=== PATIENT | male | born 1955 | race Caucasian/White ===

== ENCOUNTER 2020-05-09 11:02 | Outpatient (REF) | payer OTHER, SELFPAY ==
[2020-05-09 11:07] LABS: MANUAL DIFF FLAG NO
[2020-05-09 11:25] LABS: Basophils Percent Auto 0.5 % (0-2); Eosinophils Absolute Auto 0.4 X10*3/uL (0.0-0.4); Eosinophils Percent Auto 7.2 % (0-4); Hemoglobin 15.3 g/dl (14.0-18.0); Imm Gran Abs Auto 0.01 X10*3/uL (0.00-0.03); Imm Gran Pct Auto 0.2 % (0.0-0.4); Lymphocytes Absolute Auto 1.7 X10*3/uL (1.2-4.9); Mean Corpuscular HGB Conc 33.3 g/dl (31.0-36.0); Mean Corpuscular Hemoglobin 30.4 pg (27.0-33.0); Mean Corpuscular Volume 91.3 fL (80-98); Mean Platelet Volume 10.4 fL (9.4-12.4); Monocytes Absolute Auto 0.7 X10*3/uL (0.1-1.2); Monocytes Percent Auto 10.6 % (2-11); Neutrophils Absolute Auto 3.4 X10*3/uL (2.0-8.3); Neutrophils Percent Auto 54.5 % (45-73); Platelet Count 258 X10*3/uL (160-400); Red Blood Count 5.04 X10*6/uL (4.60-5.80); Red Cell Distribution Width 11.9 % (11.0-16.0); White Blood Count 6.1 X10*3/uL (4.8-10.8)
[2020-05-09 11:45] LABS: Estimated Average Glucose 105 mg/dL; Hemoglobin A1c % 5.3 %
[2020-05-09 12:15] LABS: Alanine Aminotransferase 34 U/L (0-40); Albumin Level 4.5 g/dL (3.5-5.0); Alkaline Phosphatase 55 U/L (39-117); Anion Gap 14 (12-20); Aspartate Amino Transferase 22 U/L (5-37); Bilirubin Total 0.4 mg/dL (0.0-1.0); Blood Urea Nitrogen 35 mg/dL (9-16); Calcium 9.1 mg/dL (8.4-10.2); Carbon Dioxide 23 mmol/L (22-29); Chloride 110 mmol/L (96-108); Cholesterol 186 mg/dL; Estimated Glomerular Filt Rate > 60; Glucose Random 96 mg/dL (60-115); HDL Cholesterol 46 mg/dL; LDL Cholesterol Calculated 83 mg/dl; Potassium 4.3 mmol/L (3.3-5.1); Sodium 143 mmol/L (135-145); Total Protein 6.7 g/dL (6.5-8.0); Triglycerides 285 mg/dL
[2020-05-09 12:33] LABS: Glucose Urine UA NEG (NEG); Leukocyte Esterase Urine NEG (NEG); Nitrite Urine NEG (NEG); PH 6.5 (5.0-8.0); Specific Gravity - Urine 1.025 (1.005-1.025); Urine Blood NEG (NEG); Urine Ketones NEG (NEG); Urine Protein NEG (NEG-TRACE)
[2020-05-09 12:35] LABS: Appearance Urine CLOUDY; Color Urine YELLOW
[2020-05-09 12:39] LABS: Prostate Specific Antigen 0.86 ng/mL (<0.05-4.0)
[2020-05-09 13:12] LABS: Reflex LDLD? No
[2020-05-09 14:19] LABS: Microalbum/Creatinine Ratio Ur 3.9 ug/mg cr
== END 2020-05-09 11:03 | disposition home or self-care (01) ==
LOC: HO.LNP 11:02
PROVIDERS: Visit Provider Internal Medicine
DX: Z00.00 Encounter for general adult medical examination without abnormal findings (principal); Z12.5 Encounter for screening for malignant neoplasm of prostate; R73.03 Prediabetes; R94.4 Abnormal results of kidney function studies
CPT/HCPCS: 80053; 80061; 81003; 82043; 83036; 84153; 85025

== ENCOUNTER 2020-05-19 15:27 | Outpatient (REF) | payer OTHER, SELFPAY ==
[2020-05-19 16:07] LABS: Blood Urea Nitrogen 27 mg/dL (9-16)
== END 2020-05-19 15:28 | disposition home or self-care (01) ==
LOC: HO.LNP 15:27
PROVIDERS: Visit Provider Internal Medicine
DX: R79.9 Abnormal finding of blood chemistry, unspecified (principal)
CPT/HCPCS: 84520

== ENCOUNTER 2020-07-22 10:02 | Outpatient (REF) | payer OTHER, SELFPAY ==
[2020-07-22 11:00] LABS: Blood Urea Nitrogen 29 mg/dL (9-16)
== END 2020-07-22 10:03 | disposition home or self-care (01) ==
LOC: HO.LNP 10:02
PROVIDERS: Visit Provider Internal Medicine
DX: R79.9 Abnormal finding of blood chemistry, unspecified (principal)
CPT/HCPCS: 84520

== ENCOUNTER 2020-09-16 06:29 | Day surgery (SDC) | payer OTHER, SELFPAY ==
[2020-09-12 10:17] VITALS: BMI 25.4
--- NOTE | 2020-09-15 11:52 | P.CONAN_ITS ---
Documented by User: Anamika Jack 09/15/20 11:53 HPI - Anesthesia Eval Consult details Narrative: 65yo M for Colonoscopy [facility] Past Medical History Medical History Seasonal allergies Surgical History Surgical History History of left inguinal hernia repair History of nasal surgery History of right inguinal hernia repair History of vasectomy Hx of colonoscopy Social History Social History Advance Directives: No Advance Directives Information Provided: No Advance Directives on File: No Meds Allergies Allergy/AdvReac Type Severity Reaction Status Date / Time No Known Allergies Allergy Verified 09/16/20 06:38 Home Medications Medication Instructions Recorded Confirmed Last Taken Type multivitamin 1 tab PO DAILY 09/12/20 09/12/20 Unknown History Exam Exam Date and Time: September 15, 2020 1152 Height,Weight and Vital Signs: Height 5 ft 10 in Weight 80.286 kg Assessment and Plan Assessment Anesthesia Assessment: Chart Reviewed Documented by User: Teagan Cavazos 09/16/20 07:30 [facility] Past Medical History Medical History Seasonal allergies Surgical History Surgical History History of left inguinal hernia repair History of nasal surgery History of right inguinal hernia repair History of vasectomy Hx of colonoscopy Social History Social History Advance Directives: No Advance Directives Information Provided: No Advance Directives on File: No Meds Allergies Allergy/AdvReac Type Severity Reaction Status Date / Time No Known Allergies Allergy Verified 09/16/20 06:38 Home Medications Medication Instructions Recorded Confirmed Last Taken Type multivitamin 1 tab PO DAILY 09/12/20 09/12/20 Unknown History Exam Airway Mallampati Class: II TM Dist: >3cm Neck ROM: Full Loose/Missing/Broken Teeth: No Heart: RRR Lungs: CTA Assessment and Plan Assessment Anesthesia Assessment: Anesthesia Plan Discussed and Chart Reviewed Final Anesthetic Review NPO: Yes ASA Class: II Final Preanesthetic Review: Meds/Allgs Chart Reviewed, Consent Obtained/Reviewed and Anes Risks/Benef Reviewed Patient Risk: Low Procedure Risk: Low Anesthetic Plan Anesthetic Plan: MAC: Disposition: Standard PACU
[2020-09-16 06:45] VITALS: BP 129/74; PULSE 83; RESP 18; TEMP 36.6; O2SAT 97
[2020-09-16] MEDS: Lactated Ringers 1,000 ML 100 ML IVCONT (06:57)
--- NOTE | 2020-09-16 08:23 | PM.OP ---
Brief Operative Note Date of Service: 09/16/20 Pre-op diagnosis: Screening Post-op diagnosis: other (Diverticulosis) Procedure: Colonoscopy to the cecum and TI Surgeon: Henrique Henson Anesthesia: MAC Was an Sheep Rancher used for this Procedure?: No Estimated blood loss (mL): 0 Pathology: none sent Condition: stable Disposition: PACU
[2020-09-16 08:24] VITALS: BP 105/73; PULSE 78; RESP 12; TEMP 36.4; O2SAT 99
[2020-09-16 08:37] VITALS: BP 129/83; PULSE 64; RESP 16; TEMP 36.8; O2SAT 98
--- NOTE | 2020-09-16 09:04 | OP_ITS ---
SURGEON: Henrique Henson MD INDICATIONS: The patient presents for evaluation of family history of colon cancer and colorectal cancer screening. Full consent has been obtained from him for this, including risks of bleeding and perforation. PREOPERATIVE DIAGNOSIS: POSTOPERATIVE DIAGNOSIS: PROCEDURE PERFORMED: Colonoscopy to cecum and terminal ileum. ESTIMATED BLOOD LOSS: COMPLICATIONS: ANESTHESIA: Monitored anesthesia care. ASSISTANTS: SPECIMENS: PREOPERATIVE DIAGNOSES: Colorectal cancer screening and family history of colon cancer. POSTOPERATIVE DIAGNOSES: Colorectal cancer screening, family history of colon cancer, mild sigmoid diverticulosis, and small internal hemorrhoids. DESCRIPTION OF PROCEDURE: The patient was placed in the left lateral decubitus position. The digital rectal exam revealed no abnormalities. The Olympus video pediatric colonoscope was entered into the rectum and advanced easily to the cecum. Once in the cecum, I did identify normal-appearing cecal pouch with appendiceal orifice and a normal-appearing ileocecal valve. The terminal ileum was cannulated and appeared normal. The scope withdrawn back in the colon. The entire cecum and ileocecal valve appeared normal. Scope was slowly withdrawn assessing all mucosal surfaces carefully. Preparation was excellent. I did not visualize any sign of polyps, colitis, nor angiodysplasia. There was a mild amount of sigmoid diverticulosis. In the rectum, scope was retroflexed visualizing small internal hemorrhoids, but no other pathology. The rectal mucosa appeared normal. The scope was straightened out and withdrawn from the patient. He tolerated the procedure well and was returned to recovery area in stable condition. IMPRESSION: 1. Mild sigmoid diverticulosis. 2. Small internal hemorrhoids. PLAN: Given his significant family history, I would recommend a repeat colonoscopy in 5 years for further screening. He will otherwise see me on a p.r.n. basis. MD MICHOACANO Ibanez/ALPESH / [phone]
== END 2020-09-16 09:02 | disposition home or self-care (01) ==
PROVIDERS: PCP Internal Medicine; Visit Provider Internal Medicine
PROC: 0DJD8ZZ Inspection of Lower Intestinal Tract, Via Natural or Artificial Opening Endoscopic (ICD-10-PCS; CPT 45378; principal; 2020-09-16 07:30)
DX: Z12.11 Encounter for screening for malignant neoplasm of colon (principal); Z80.0 Family history of malignant neoplasm of digestive organs; K57.30 Diverticulosis of large intestine without perforation or abscess without bleeding; K64.8 Other hemorrhoids
CPT/HCPCS: 45378

== ENCOUNTER 2020-10-26 11:16 | Outpatient (REF) | payer OTHER, SELFPAY ==
[2020-10-26 12:07] LABS: Anion Gap 12 (12-20); Blood Urea Nitrogen 26 mg/dL (9-16); Calcium 9.5 mg/dL (8.4-10.2); Carbon Dioxide 25 mmol/L (22-29); Chloride 106 mmol/L (96-108); Estimated Glomerular Filt Rate > 60; Sodium 139 mmol/L (135-145)
[2020-10-26 12:22] LABS: Appearance Urine HAZY; Color Urine YELLOW; Glucose Urine UA NEG (NEG); Leukocyte Esterase Urine NEG (NEG); Nitrite Urine NEG (NEG); Specific Gravity - Urine >= 1.030 (1.005-1.025); Urine Blood NEG (NEG); Urine Ketones NEG (NEG); Urine Protein NEG (NEG-TRACE)
[2020-10-26 12:47] LABS: Creatinine Urine 206.55 mg/dL; Microalbum/Creatinine Ratio Ur 3.3 ug/mg cr; Protein/Creatinine Ratio, Ur 0.05 (<0.2); Total Protein Urine Random 11 mg/dL (<12)
[2020-10-26 19:00] LABS: Creatinine, 24Hr Urine 1.4 G/Day (1.0-2.0); Total Volume 24 Hour Urine 1750 mL
[2020-11-07 15:52] LABS: BUN 28 mg/dL (7-25); BUN Clearance 26 mL/min (41-68); Urea Nitrogen, Urine 12 g/24 h (6-17)
== END 2020-10-26 11:17 | disposition home or self-care (01) ==
LOC: HO.LAB 11:16
PROVIDERS: Visit Provider Internal Medicine Nephrology
DX: R79.9 Abnormal finding of blood chemistry, unspecified (principal)
CPT/HCPCS: 36415; 80051; 81003; 82043; 82310; 82565; 82570; 84156; 84520; 84545

== ENCOUNTER 2021-04-14 09:50 | Outpatient (REF) | payer OTHER, SELFPAY ==
--- NOTE | ~2021-04-14 | FL_ITS ---
EXAMINATION: FL BARIUM SWALLOW CLINICAL INFORMATION: Dysphagia COMPARISON: None TECHNIQUE: Barium swallow examination is performed using fluoroscopic evaluation in addition to multiple fluoroscopic spot views. The patient is imaged both upright and prone and using both thick and thin sulfate along with effervescent granules. Barium tablet was also administered Fluoroscopy time: 1 minutes DAP: 3 Gycm2 Images: 62 FINDINGS: The swallowing mechanism is normal. No aspiration or penetration is seen. There is transient posterior impression on the esophagus from a prominent cricopharyngeus muscle. There is significant gastroesophageal reflux. There is a small sliding-type hiatal hernia and Schatzki ring. No evidence of mass, stricture or esophagitis is seen. Barium tablet passed freely into the stomach. FL/FL barium swallow IMPRESSION: Significant gastroesophageal reflux. Small sliding-type hiatal hernia with Schatzki ring.
== END 2021-04-14 09:51 | disposition home or self-care (01) ==
LOC: HO.XRAY 09:50
PROVIDERS: PCP Internal Medicine; Visit Provider Otolaryngology
DX: R13.10 Dysphagia, unspecified (principal); K21.9 Gastro-esophageal reflux disease without esophagitis
CPT/HCPCS: 74220

== ENCOUNTER 2021-05-16 10:36 | Outpatient (REF) | payer OTHER, SELFPAY ==
[2021-05-16 10:39] LABS: MANUAL DIFF FLAG NO
[2021-05-16 10:49] LABS: Basophils Percent Auto 0.6 % (0-2); Eosinophils Absolute Auto 0.4 X10*3/uL (0.0-0.4); Eosinophils Percent Auto 9.1 % (0-4); Hematocrit 45.3 % (42.0-52.0); Hemoglobin 15.3 g/dl (14.0-18.0); Imm Gran Abs Auto 0.01 X10*3/uL (0.00-0.03); Imm Gran Pct Auto 0.2 % (0.0-0.4); Lymphocytes Absolute Auto 1.4 X10*3/uL (1.2-4.9); Lymphocytes Percent Auto 29.7 % (20-40); Mean Corpuscular HGB Conc 33.8 g/dl (31.0-36.0); Mean Corpuscular Volume 88.8 fL (80.0-98.0); Mean Platelet Volume 10.6 fL (9.4-12.4); Monocytes Absolute Auto 0.5 X10*3/uL (0.1-1.2); Monocytes Percent Auto 11.2 % (2-11); Neutrophils Absolute Auto 2.3 x10*3/uL (2.0-8.3); Neutrophils Percent Auto 49.2 % (45-73); Platelet Count 263 X10*3/uL (160-400); Red Cell Distribution Width 11.8 % (11.0-16.0); White Blood Count 4.7 X10*3/uL (4.8-10.8)
[2021-05-16 10:51] LABS: Appearance Urine CLEAR; Color Urine YELLOW; Glucose Urine UA NEG (NEG); Leukocyte Esterase Urine NEG (NEG); Nitrite Urine NEG (NEG); PH 6.5 (5.0-8.0); Specific Gravity - Urine 1.015 (1.005-1.025); Urine Blood NEG (NEG); Urine Ketones NEG (NEG); Urine Protein NEG (NEG-TRACE)
[2021-05-16 11:00] LABS: Estimated Average Glucose 108 mg/dL; Hemoglobin A1c % 5.4 %
[2021-05-16 11:07] LABS: Alanine Aminotransferase 24 U/L (0-40); Albumin Level 4.4 g/dL (3.5-5.0); Alkaline Phosphatase 49 U/L (39-117); Anion Gap 12 (12-20); Aspartate Amino Transferase 19 U/L (5-37); Bilirubin Total 0.5 mg/dL (0.0-1.0); Blood Urea Nitrogen 22 mg/dL (9-16); Calcium 9.4 mg/dL (8.4-10.2); Carbon Dioxide 24 mmol/L (22-29); Chloride 107 mmol/L (96-108); Cholesterol 182 mg/dL; Estimated Glomerular Filt Rate > 60; Glucose Fasting 100 mg/dL (60-99); HDL Cholesterol 53 mg/dL; LDL Cholesterol Calculated 108 mg/dl; Potassium 4.2 mmol/L (3.3-5.1); Sodium 139 mmol/L (135-145); Total Protein 6.6 g/dL (6.5-8.0); Triglycerides 107 mg/dL
[2021-05-16 11:29] LABS: Creatinine Urine 148.31 mg/dL; Microalbumin Urine < 5.0 mg/L
[2021-05-16 11:30] LABS: PSA,Total (Free>4and<10) 0.47 ng/mL (0.00-4.00)
== END 2021-05-16 10:37 | disposition home or self-care (01) ==
LOC: HO.LNP 10:36
PROVIDERS: Visit Provider Internal Medicine
DX: Z12.5 Encounter for screening for malignant neoplasm of prostate (principal); R73.03 Prediabetes
CPT/HCPCS: 80053; 80061; 81003; 82043; 83036; 84153; 85025

== ENCOUNTER 2022-05-21 11:13 | Outpatient (REF) | payer OTHER, SELFPAY ==
[2022-05-21 11:15] LABS: MANUAL DIFF FLAG NO
[2022-05-21 11:33] LABS: Basophils Percent Auto 0.6 % (0-2); Eosinophils Absolute Auto 0.4 X10*3/uL (0.0-0.4); Eosinophils Percent Auto 7.4 % (0-4); Hematocrit 46.2 % (42.0-52.0); Hemoglobin 15.4 g/dl (14.0-18.0); Imm Gran Abs Auto 0.01 X10*3/uL (0.00-0.03); Imm Gran Pct Auto 0.2 % (0.0-0.4); Lymphocytes Absolute Auto 1.6 X10*3/uL (1.2-4.9); Lymphocytes Percent Auto 31.9 % (20-40); Mean Corpuscular HGB Conc 33.3 g/dl (31.0-36.0); Mean Corpuscular Hemoglobin 29.6 pg (27.0-33.0); Mean Corpuscular Volume 88.8 fL (80.0-98.0); Mean Platelet Volume 10.7 fL (9.4-12.4); Monocytes Absolute Auto 0.6 X10*3/uL (0.1-1.2); Monocytes Percent Auto 11.4 % (2-11); Neutrophils Absolute Auto 2.4 x10*3/uL (2.0-8.3); Neutrophils Percent Auto 48.5 % (45-73); Platelet Count 238 X10*3/uL (160-400); Red Cell Distribution Width 11.6 % (11.0-16.0)
[2022-05-21 11:54] LABS: Appearance Urine Clear; Color Urine Yellow; Glucose Urine UA Negative (Negative); Leukocyte Esterase Urine Negative (Negative); Nitrite Urine Negative (Negative); PH 6.5 (5.0-9.0); Specific Gravity - Urine 1.015 (1.005-1.025); Urine Blood Negative (Negative); Urine Ketones Negative (Negative); Urine Protein Negative (Neg-Trace)
[2022-05-21 11:58] LABS: Bacteria Urine None Seen (None Seen); Hyaline Casts Urine 0-2 /LPF (0-2); RBC Urine 0-2 /HPF (0-2); Squamous Epithelial Cell Urine 0-2 /HPF (0-2); WBC Urine 0-5 /HPF (0-5)
[2022-05-21 12:08] LABS: Alanine Aminotransferase 29 U/L (0-40); Albumin Level 4.4 g/dL (3.5-5.0); Alkaline Phosphatase 47 U/L (39-117); Anion Gap 13 (12-20); Aspartate Amino Transferase 22 U/L (5-37); Bilirubin Total 0.4 mg/dL (0.0-1.0); Blood Urea Nitrogen 31 mg/dL (9-16); Calcium 9.3 mg/dL (8.4-10.2); Carbon Dioxide 26 mmol/L (22-29); Chloride 107 mmol/L (96-108); Cholesterol 197 mg/dL; Estimated Glomerular Filt Rate > 60; Glucose Fasting 92 mg/dL (60-99); HDL Cholesterol 49 mg/dL; LDL Cholesterol Calculated 116 mg/dl; Potassium 4.4 mmol/L (3.3-5.1); Sodium 142 mmol/L (135-145); Total Protein 6.3 g/dL (6.5-8.0); Triglycerides 163 mg/dL
[2022-05-21 12:12] LABS: PSA,Total (Free>4and<10) 0.42 ng/mL (0.00-4.00)
[2022-05-21 12:14] LABS: Estimated Average Glucose 114 mg/dL; Hemoglobin A1c % 5.6 %
[2022-05-21 15:43] LABS: Creatinine Urine 84.38 mg/dL; Microalbumin Urine < 5.0 mg/L
== END 2022-05-21 11:14 | disposition home or self-care (01) ==
LOC: HO.LNP 11:13
PROVIDERS: Visit Provider Internal Medicine
DX: Z00.00 Encounter for general adult medical examination without abnormal findings (principal); Z12.5 Encounter for screening for malignant neoplasm of prostate; R73.03 Prediabetes
CPT/HCPCS: 80053; 80061; 81001; 82043; 83036; 84153; 85025

== ENCOUNTER 2022-11-26 10:29 | Outpatient (REF) | payer OTHER, SELFPAY ==
[2022-11-26 11:28] LABS: Blood Urea Nitrogen 24 mg/dL (9-16)
== END 2022-11-26 10:30 | disposition home or self-care (01) ==
LOC: HO.LNP 10:29
PROVIDERS: PCP Internal Medicine; Visit Provider Internal Medicine
DX: R79.9 Abnormal finding of blood chemistry, unspecified (principal)
CPT/HCPCS: 84520

== ENCOUNTER 2023-05-20 10:59 | Outpatient (REF) | payer OTHER, SELFPAY ==
[2023-05-20 11:03] LABS: MANUAL DIFF FLAG NO
[2023-05-20 11:43] LABS: Appearance Urine Clear; Basophils Percent Auto 0.9 % (0-2); Color Urine Yellow; Eosinophils Absolute Auto 0.5 X10*3/uL (0.0-0.4); Eosinophils Percent Auto 11.5 % (0-4); Glucose Urine UA Negative (Negative); Hematocrit 45.2 % (42.0-52.0); Hemoglobin 15.1 g/dl (14.0-18.0); Imm Gran Abs Auto 0.01 X10*3/uL (0.00-0.03); Imm Gran Pct Auto 0.2 % (0.0-0.4); Leukocyte Esterase Urine Negative (Negative); Lymphocytes Absolute Auto 1.4 X10*3/uL (1.2-4.9); Mean Corpuscular HGB Conc 33.4 g/dl (31.0-36.0); Mean Corpuscular Hemoglobin 29.4 pg (27.0-33.0); Mean Corpuscular Volume 87.9 fL (80.0-98.0); Mean Platelet Volume 10.6 fL (9.4-12.4); Monocytes Absolute Auto 0.5 X10*3/uL (0.1-1.2); Monocytes Percent Auto 11.5 % (2-11); Neutrophils Absolute Auto 2.1 x10*3/uL (2.0-8.3); Neutrophils Percent Auto 45.9 % (45-73); Nitrite Urine Negative (Negative); PH 5.5 (5.0-9.0); Platelet Count 224 X10*3/uL (160-400); Red Blood Count 5.14 X10*6/uL (4.60-5.80); Red Cell Distribution Width 11.9 % (11.0-16.0); Specific Gravity - Urine 1.015 (1.005-1.025); Urine Blood Negative (Negative); Urine Ketones Negative (Negative); Urine Protein Negative (Neg-Trace); White Blood Count 4.6 X10*3/uL (4.8-10.8)
[2023-05-20 11:48] LABS: Bacteria Urine None Seen (None Seen); Estimated Average Glucose 108 mg/dL; Hemoglobin A1c % 5.4 % (<6.0); Hyaline Casts Urine 0-2 /LPF (0-2); RBC Urine 0-2 /HPF (0-2); Squamous Epithelial Cell Urine 0-2 /HPF (0-2); WBC Urine 0-5 /HPF (0-5)
[2023-05-20 11:59] LABS: Alanine Aminotransferase 33 U/L (0-40); Albumin Level 4.2 g/dL (3.5-5.0); Alkaline Phosphatase 43 U/L (39-117); Anion Gap 11 (12-20); Aspartate Amino Transferase 27 U/L (5-37); Bilirubin Total 0.5 mg/dL (0.0-1.0); Blood Urea Nitrogen 27 mg/dL (9-16); Calcium 9.2 mg/dL (8.4-10.2); Carbon Dioxide 26 mmol/L (22-29); Chloride 108 mmol/L (96-108); Cholesterol 204 mg/dL (<200); Estimated Glomerular Filt Rate > 60; Glucose Fasting 90 mg/dL (60-99); HDL Cholesterol 64 mg/dL (>40); LDL Cholesterol Calculated 113 mg/dL (<100); Sodium 141 mmol/L (135-145); Total Protein 6.7 g/dL (6.5-8.0); Triglycerides 139 mg/dL (<150)
[2023-05-20 12:11] LABS: PSA,Total (Free>4and<10) 0.41 ng/mL (0.00-4.00)
[2023-05-20 12:28] LABS: Creatinine Urine 68.37 mg/dL; Microalbumin Urine < 5.0 mg/L
== END 2023-05-20 11:00 | disposition home or self-care (01) ==
LOC: HO.LNP 10:59
PROVIDERS: Visit Provider Internal Medicine
DX: Z00.00 Encounter for general adult medical examination without abnormal findings (principal); Z12.5 Encounter for screening for malignant neoplasm of prostate; Z13.6 Encounter for screening for cardiovascular disorders; R73.03 Prediabetes
CPT/HCPCS: 80053; 80061; 81001; 82043; 82570; 83036; 84153; 85025

== ENCOUNTER 2023-05-27 08:56 | Outpatient (REF) | payer OTHER, SELFPAY ==
--- NOTE | ~2023-05-27 | XR_ITS ---
EXAMINATION: XR CHEST CLINICAL INFORMATION: Chronic, cough. COMPARISON: None available. TECHNIQUE: 2 views of the chest were obtained. FINDINGS: There is no gross pneumothorax. The lungs are well inflated. Degenerative changes in the thoracic spine. No pleural effusion. Heart size is normal. No focal consolidation to suggest pneumonia. XR/XR chest 2V IMPRESSION: No evidence of pneumonia.
== END 2023-05-27 08:57 | disposition home or self-care (01) ==
LOC: HO.XRAY 08:56
PROVIDERS: PCP Internal Medicine; Visit Provider Internal Medicine
DX: R05.3 Chronic cough (principal)
CPT/HCPCS: 71046

== ENCOUNTER 2024-05-22 10:25 | Outpatient (REF) | payer MEDICARE, SELFPAY ==
[2024-05-22 10:28] LABS: MANUAL DIFF FLAG NO
[2024-05-22 10:53] LABS: Basophils Percent Auto 0.7 % (0-2); Eosinophils Absolute Auto 0.4 X10*3/uL (0.0-0.4); Eosinophils Percent Auto 7.4 % (0-4); Hematocrit 45.6 % (42.0-52.0); Hemoglobin 15.7 g/dl (14.0-18.0); Imm Gran Abs Auto 0.01 X10*3/uL (0.00-0.03); Imm Gran Pct Auto 0.2 % (0.0-0.4); Lymphocytes Absolute Auto 1.8 X10*3/uL (1.2-4.9); Lymphocytes Percent Auto 32.9 % (20-40); Mean Corpuscular HGB Conc 34.4 g/dl (31.0-36.0); Mean Corpuscular Hemoglobin 30.4 pg (27.0-33.0); Mean Corpuscular Volume 88.4 fL (80.0-98.0); Mean Platelet Volume 10.3 fL (9.4-12.4); Monocytes Absolute Auto 0.6 X10*3/uL (0.1-1.2); Monocytes Percent Auto 10.5 % (2-11); Neutrophils Absolute Auto 2.7 x10*3/uL (2.0-8.3); Neutrophils Percent Auto 48.3 % (45-73); Platelet Count 255 X10*3/uL (160-400); Red Blood Count 5.16 X10*6/uL (4.60-5.80); Red Cell Distribution Width 12.3 % (11.0-16.0); White Blood Count 5.5 X10*3/uL (4.8-10.8)
[2024-05-22 11:03] LABS: Appearance Urine Clear; Color Urine Yellow; Glucose Urine UA Negative (Negative); Leukocyte Esterase Urine Negative (Negative); Nitrite Urine Negative (Negative); PH 6.5 (5.0-9.0); Urine Blood Negative (Negative); Urine Ketones Negative (Negative); Urine Protein Negative (Neg-Trace)
[2024-05-22 11:10] LABS: Bacteria Urine None Seen (None Seen); Hyaline Casts Urine 0-2 /LPF (0-2); RBC Urine 0-2 /HPF (0-2); Squamous Epithelial Cell Urine 0-2 /HPF (0-2); WBC Urine 0-5 /HPF (0-5)
[2024-05-22 11:18] LABS: Estimated Average Glucose 103 mg/dL; Hemoglobin A1c % 5.2 % (<6.0); Total Hemoglobin (HGBA1C) 3973.7786 umol/L
[2024-05-22 11:26] LABS: Alanine Aminotransferase 36 U/L (0-40); Albumin Level 4.4 g/dL (3.5-5.0); Alkaline Phosphatase 44 U/L (39-117); Anion Gap 13 (12-20); Aspartate Amino Transferase 31 U/L (5-37); Bilirubin Total 0.6 mg/dL (0.0-1.0); Blood Urea Nitrogen 31 mg/dL (9-16); Calcium 9.3 mg/dL (8.4-10.2); Carbon Dioxide 26 mmol/L (22-29); Chloride 105 mmol/L (96-108); Cholesterol 203 mg/dL (<200); Estimated Glomerular Filt Rate > 60; Glucose Fasting 86 mg/dL (60-99); HDL Cholesterol 72 mg/dL (>40); LDL Cholesterol Calculated 109 mg/dL (<100); Potassium 3.9 mmol/L (3.3-5.1); Sodium 140 mmol/L (135-145); Total Protein 7.1 g/dL (6.5-8.0); Triglycerides 111 mg/dL (<150)
--- OUTSIDE RECORDS SUMMARY | 2024-05-22 11:43 | XMS_ITS ---
Author Organization Jay Rushing MD Address [address] [place] [phone] Care Team Providers Care Gandy Dancer Name Role Phone Jay Rushing Primary Care Provider Results Component Value Reference Range Notes Occult Blood, Stool, Guaiac Reviewed date:05/31/2023 11:05:31 AM Interpretation:Negative Performing Lab: Notes/Report: Negative Occult Blood, Stool, Guaiac Neg REASON FOR VISIT 1 stool card Encounters Encounter Location Date Provider Diagnosis Jay Rushing MD [address] [place] [phone] 05/31/2023 aJy Rushing Colon cancer screening Z12.11 Assessments Encounter Date Diagnosis (ICD Code) Assessment Notes Treatment Notes Treatment Clinical Notes Section Notes 05/31/2023 Colon cancer screening (ICD-10 - Z12.11) guaiac negative Plan Of Treatment Treatment Notes Assessment Notes Colon cancer screening guaiac negative Next Appt Details Provider Name:Jay Bourne ier, 05/29/2024 08:30:00 AM, [address], Suite [facility], [place], [place], [phone], Progress Notes * David FORBES FDOB:1955 (68 yo M)Acc No.[id number]:05/31/2023 Patient:?David Forbes :1955???Age:68 Y???Sex:Male Address:[address] [place] [address] Subjective: * Chief Complaints: * ???1 stool card * Medical History:? * Surgical History:? * Hospitalization/Major Diagno stic Procedure:? * Medications:? Objective: Assessment: * Assessment: 1.?Colon cancer screening - Z12.11 (Primary)? Plan: * Treatment: ? Value Reference Range ?Occult Blood, Stool, Guaiac Neg Notes: guaiac negative.?? * Procedure Codes:?96934 TEST FOR BLOOD, FECES * true * Date:? Generated for Cierra marshall/Mika/eTransmitting on:?05/22/2024 11:43 AM EST
--- OUTSIDE RECORDS SUMMARY | 2024-05-22 11:43 | XMS_ITS | Patient Health Record ---
Author Organization [facility] Address [address] [place] [address] Care Team Providers Care Freezer Person Name Role Phone Jay Rushing MD Primary Care Provider Henrique Hidalgo Unavailable [phone] Allergies Allergen (clinical drug ingredient) Drug/Non Drug Allergy documented on EMR Reaction Allergy Type Onset Date Status Vaccine product containing Influenza virus antigen (medicinal product) flu injections (uncoded) Unknown Allergy Active Reason For Referral No Information Medications Medication SIG (Take, Route, Frequency, Duration) Notes Start Date End Date Status Multivitamin Active Problems Problem Type SNOMED Code ICD Code Onset Dates Problem Status W/U Status Risk Notes Problem 768953058 Encounter for screening for malignant neoplasm of colon (Z12.11) Active confirmed Problem Screening for malignant neoplasm of rectum (892265977) Encounter for screening for malignant neoplasm of rectum (Z12.12) Active confirmed Problem 99742476 Preprocedural examination (Z01.818) Active confirmed Problem 146383192 Family history o f colon cancer (Z80.0) Active confirmed Problem Diverticulosis of sigmoid colon (041379120) Diverticulosis of sigmoid colon (K57.30) Active confirmed Problem 133698556 Family history o f colon cancer in father (Z80.0) Active confirmed Plan Of Treatment Future Test Test Name Order Date COLONOSCOPY 07/26/2015 COLONOSCOPY 08/23/2020 Insurance Providers Payer Name Payer Address Payer Phone Subscriber Number Group Number Insured Name Patient Relationship to Insured Coverage Start Date Coverage End Date [employer] (No Referra l) [address] [address] [place] [address] [id number] OCHOA FORBES Self - patient is the insured Medical (General) History Medical History History ICD Code Colonoscopy in 2004 and on ---diverticulosis and inrternal hemorrhoids Denies MS,DM,CVA,Lung disease,renal dise ase Seasonal allergies Negative colonoscopy in 10/2015 Surgical History Surgery Date(Month/Year) Right inguinal hernia surgery Vasectomy Left hernia repair Nasal polyp/deviated septum
--- OUTSIDE RECORDS SUMMARY | 2024-05-22 11:43 | XMS_ITS | Patient Health Record ---
Author Organization Jay Rushing MD Address [address] [place], [place] [phone] Care Team Providers Care Hotel Or Motel Room Service Supervisor Name Role Phone Jay Rushing Primary Care Provider [phone] Allergies Allergen (clinical drug ingredient) Drug/Non Drug Allergy documented on EMR Reaction Allergy Type Onset Date Status Vaccine product containing Influenza virus antigen (medicinal product) Flu Vac (uncoded) anaphylaxis Allergy Act manjula Results Component Value Reference Range Notes XR chest 2V Reviewed date:05/28/2023 12:11:04 PM Interpretation: Performing Lab: Notes/Report: [address] [address] XRay Report Signed Patient: David Griffith MR#: [id number] 1 : 1955 Acct:[id number] Age/Sex: 68 / M ADM Date: 05/27/23 Loc: JULIAN Attending Dr: Jay Rushing MD Ordering Physician: Jay Rushing MD Date of Service: 05/27/23 Procedure(s): XR chest 2V Accession Number(s): [id number] cc: Jay Rushing MD EXAMINATION: XR CHEST CLINICAL INFORMATION: Chronic, cough. COMPARISON: None available. TECHNIQUE: 2 views of the chest were obtained. FINDINGS: There is no gross pneumothorax. The lungs are well inflated. Degenerative changes in the thoracic spine. No pleural effusion. Heart size is normal. No focal consolidation to suggest pneumonia. XR/XR chest 2V IMPRESSION: No evidence of pneumonia. Dictated By: Kat Redman MD Signed By: <Electronically signed by Kat Redman MD in OV> 05/28/23 1038 DD/ 8 TD/TT: Outside Maintenance Worker: [address] [place] [address] XRay Report Signed Patient: David Griffith MR#: [id number] 1 : 1955 Acct:[id number] Age/Sex: 68 / M ADM Date: 05/27/23 Loc: HO.XRAY Attending Dr: Jay Rushing MD Ordering Physician: Jay Rushing MD Date of Service: 05/27/23 Procedure(s): XR jayda st 2V Accession Number(s): [id number] cc: Jay Rushing MD EXAMINATION: XR CHEST CLINICAL INFORMATION: Chronic, cough. COMPARISON: None available. TECHNIQUE: 2 views of the chest were obtained. FINDINGS: There is no gross pneumothorax. The lungs are well inflated. Degenerative changes in the thoracic spine. No pleural effusion. Heart size is normal . No focal consolidation to suggest pneumonia. XR/XR chest 2V IMPRESSION: No evidence of pneumonia. Dictated By: Kat Redman MD Signed By: <Electronically signed by Kat Redman MD in OV> 05/28/23 1038 DD/ 8 TD/TT: Outside Maintenance Worker: Occult Blood, Stool, Guaiac Reviewed date:05/31/2023 11:05:31 AM Interpretation:Negative Performing Lab: Notes/Report: Negative Occult Blood, Stool, Guaiac Neg Complete Blood Count Auto Di ff (Not yet reviewed by provider) Interpretation: Performing Lab:[facility], [address] [place] [phone] Notes/Report: White Blood Count 5.5 4.8-10.8 X10*3/uL [...] NRBC Abs Auto 0.000 0.0-0.012 X10*3/uL Comprehensive [place]. Panel Fa st (Not yet reviewed by provider) Interpretation: Performing Lab:[facility], [address] [place] [phone] Notes/Report: Sodium 140 135-145 mmol/L Potassium 3.9 [...] Alkaline Phosphatase 44 39-117 U/L Lipid Panel (Not yet reviewe d by provider) Interpretation: Performing Lab:[facility], [address] [place] [phone] Notes/Report: Triglycerides 111 <150 mg/dL Desirable Triglyceride: [...] low results in patients with liver disease. Hemoglobin A1c (Not yet revi ewed by provider) Interpretation: Performing Lab:[facility], [address] [place] [phone] Notes/Report: Hemoglobin A1c % 5.2 <6.0 % [...] average glucose, using the formula of the V1O-Lvxdtxx Average Glucose study (ADAG), Diabetes Care, Vol.31,#8, Oct. 2007 UA ClnCatch+Micro w/rflx Cul t (Not yet reviewed by provider) Interpretation: Performing Lab:[facility], [address] [place] [phone] Notes/Report: Urine, Clean Catch Color Urine Yellow Appearance Urine Clear PH 6.5 5.0-9.0 Glucose Urine UA Negative Negative mg/dL Urine Blood Negative Negative Specific Arthur - Urine 1.010 1.005-1.025 Urine Protein Negative Neg-Trace mg/dL Urine Ketones Negative Negative mg/dL Nitrite Urine Negative Negative Leukocyte Esterase Urine Negative Negative RBC Urine 0-2 0-2 /HPF WBC Urine 0-5 0-5 /HPF Squamous Epithelial Cell Urine 0-2 0-2 /HPF Bacteria Urine None Seen None Seen Hyaline Casts Urine 0-2 0-2 /LPF Reason For Referral No Information Medications Medication SIG (Take, Route, Frequency, Duration) Notes Start Date End Date Status Esomeprazole Magnesium 40 MG 1 capsule Orally Once a day Active Immunizations Vaccine Route Administration Date Status Comme nts DECLINED, FLU Unknown 01/06/2013 Administered Covid Vaccine Unknown 06/26/2020 Administered Rocky & Rocky Flu Vaccine Unknown 02/23/2014 Refused Flu Vaccine Unknown 04/05/2015 Refused Fluarix Quadrivalent Unknown 04/24/2016 Refused Fluarix Quadrivalent Unknown 05/02/2017 Refused PPSV23 (Pnemovax) Unknown 05/02/2017 Refused Fluarix Quadrivalent Unknown 05/05/2019 Refused PPSV23 (Pnemovax) Unknown 05/05/2019 Refused Fluarix Quadrivalent Unknown 05/19/2020 Refused PPSV23 (Pnemovax) Unknown 05/19/2020 Refused Social History Tobacco Use: Social History Observation Description Date Details (start date - stop date) Former Smoker NA - NA Tobacco Use/Smoking Question Answer Notes Patient is a former smoker How long has it been since y ou last smoked? > 10 years Additional Findings: Tobacco Non-User Fo rmer smoker, currently using no form of tobacco Alcohol Screen Question Answer Notes Did you have a drink contain ing alcohol in the past year? Yes How often did you have a dri nk containing alcohol in the past year? 4 or more times a week (4 points) How many drinks did you have on a typical day when you were drinking in the past year? 1 or 2 drinks (0 point) How often did you have 6 or more drinks on one occasion in the past year? Never (0 point) Points 4 Interpretation Positive Problems Problem Type SNOMED Code ICD Code Onset Dates Problem Status W/U Status Risk Notes Problem Localized osteoarthrosis uncertain if primary OR secondary (10805259) Localized osteoarthrosis not specified whether primary or secondary, hand (715.34) Active confirmed Problem Acid reflux (051124152) Acid reflux (K21.9) Active confirmed Problem 5656132 Prediabetes (R73.09) Active confirmed Problem 136055735 Schatzki's ring (K22.2) Active confirmed Problem 129387193 Family history o f colon cancer (Z80.0) Active confirmed Problem 8680816614057 Bilateral nonpulsatile tinnitus (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) Active confirmed Vital Signs Blood pressure diastolic 66 mm Hg 05/27/2023 leeann ght is down 4 pounds since 05-25-22 Height 69 in 05/27/2023 weight is down 4 pounds since 05-25-22 Blood pressure systolic 124 mm Hg 05/27/2023 weig ht is down 4 pounds since 05-25-22 Weight 163 lbs 05/27/2023 weight is down 4 pounds since 05-25-22 BMI 24.07 kg/m2 05/27/2023 weight is down 4 pounds since 05-25-22 Encounters Encounter Location Date Provider Diagnosis Jay Rushing MD [address] [place] [phone] 05/22/2024 Jay Rushing Blood tests for routine general physical examination Z00.00 and Prediabetes R73.09 Jay Rushing MD [address] [place] [address] Drive [address] [place] [phone] 05/27/2023 Jay Rushing Chronic cough R05.3 ; Annual physical exam Z00.00 ; Schatzki's ring K22.2 and Family history of colon cancer Z80.0 Jay Rushing MD [address] [place] [address] Drive [address] [place] [phone] 05/31/2023 Jay Rushing Colon cancer screening Z12.11 Assessments Encounter Date Diagnosis (ICD Code) Assessment Notes Treatment Notes Treatment Clinical Notes Section Notes 05/22/2024 Blood tests for routine general physical examination (ICD-10 - Z00.00) 05/27/2023 Chronic cough (ICD-10 - R05.3) order given to patient to Have done at [facility] 05/27/2023 Annual physical exam (ICD-10 - Z00.00) labs reviewed and discussed with pt 05/31/2023 Colon cancer screening (ICD-10 - Z12.11) guaiac negative 05/22/2024 Prediabetes (ICD-10 - R73.09) 05/27/2023 Schatzki's ring (ICD-10 - K22.2) occasionally with reflux 05/27/2023 Family history of colon cancer (ICD-10 - Z80.0) due for colonoscopy in 2 years Plan Of Treatment Pending Test Test Name Order Date Electrocardiogram (EKG) 05/08/2018 Electrocardiogram (EKG) 05/02/2017 XR CHEST 2 VIEW PA & LAT 05/27/2023 Complete Blood Count Auto Diff 5 Comprehensive [place]. Panel Fast 5 Lipid Panel 05/22/2024 PSA,Total (Free>4and<10) 05/22/2024 Microalbumin, Random 05/22/2024 Hemoglobin A1c 05/22/2024 UA ClnCatch+Micro w/rflx Cult 05/22/2024 Next Appt Details Provider Name:Jay Bourne ier, 05/29/2024 08:30:00 AM, [address] [place] [address], [address], [place], [place], [phone], Insurance Providers Payer Name Payer Address Payer Phone Subscriber Number Group Number Insured Name Patient Relationship to Insured Coverage Start Date Coverage End Date [employer] MEDICARE ADVANTAGE [address] [place], [place] [id number] David Griffith Self - patient is the insured Medical (General) History Medical History History ICD Code colonoscopy - 12/18/10; colon oscopy done 11/03/15 w/Dr. Henson - repeat 5 yrs due to family hx of colon cancer colonoscopy 10/05, repeat 5 yrs
--- OUTSIDE RECORDS SUMMARY | 2024-05-22 11:43 | XMS_ITS | Clinical Summary ---
Author Organization [facility] Address [address] [place] [address] Care Team Providers Care Foam Rubber Mixer Name Role Phone Jay Rushing MD Primary Care Provider Allergies Active Allergy Reactions Criticality Noted Date Comments Influenza Virus Vaccine Anaphylaxis High 10/18/2020 Medications No known medications Active Problems Problem Noted Date Diagnosed Date Blood chemistry outside reference range 10/19/19 21 Overview (10/18/2020): Elevated BUN Family History Medical History Relation Comments Cancer Father Dementia Mother Relation Status Comments Father Mother Social History Tobacco Use Types Packs/Day Years Used Date Smoking Tobacco: Former Cigarettes Q uit: 2010 Smokeless Tobacco: Never Alcohol Use Standard Drinks/Week Comments Yes 0 (1 standard drink = 0.6 oz pur e alcohol) 3-4 xweek Sex and Gender Information Value Date Recorded Sex Assigned at Not on file Legal Sex Male 5:14 PM EST Gender Identity Not on file Sexual Orientation Not on file Last Filed Vital Signs Vital Sign Reading Time Taken Comments Blood Pressure 120/64 12/06/2020 2:49 PM EDT Pulse 77 12/06/2020 2:49 PM EDT Temperature - - Respiratory Rate - - Oxygen Saturation 99% 12/06/2020 2:49 PM EDT Inhaled Oxygen Concentration - - Weight 78.9 kg (174 lb) 12/06/2020 2:49 PM EDT Height - - Body Mass Index - - Plan of Treatment Health Maintenance Due Date Last Done Comments Colorectal Cancer Screening: Annual FOBT 2006 Colorectal Cancer Screening: Colonoscopy 2006 Colorectal Cancer Screening: Sigmoidoscopy 2006 Pneumococcal Vaccine: 65+ Ye ars (1 of 1 - PCV) 2022 Hepatitis B Vaccine Aged Out No longe r eligible based on patient's age to complete this topic Insurance AETNA AETNA Care Teams Foam Rubber Mixer Relationship Specialty Start Date End Date Jay Rushing MD [address] [place] [address] [address] [facility] PCP - General Internal Medicine 08/19/20
--- OUTSIDE RECORDS SUMMARY | 2024-05-22 11:43 | XMS_ITS ---
Author Organization Jay Rushing MD Address [address] [place], [place] [phone] Care Team Providers Care Magneto Specialist Name Role Phone Jay Rushing Primary Care Provider Results Component Value Reference Range Notes Complete Blood Count Auto Di ff (Not yet reviewed by provider) Interpretation: Performing Lab:[facility], [address] [place] [phone] Notes/Report: White Blood Count 5.5 4.8-10.8 X10*3/uL [...] NRBC Abs Auto 0.000 0.0-0.012 X10*3/uL Comprehensive Success. Panel Fa st (Not yet reviewed by provider) Interpretation: Performing Lab:[facility], [address] [place] [phone] Notes/Report: Sodium 140 135-145 mmol/L Potassium 3.9 [...] yet reviewe d by provider) Interpretation: Performing Lab:[facility], [address] [place] [phone] Notes/Report: Triglycerides 111 <150 mg/dL Desirable Triglyceride: [...] yet revi ewed by provider) Interpretation: Performing Lab:[facility], [address] [place] [phone] Notes/Report: Hemoglobin A1c % 5.2 <6.0 % [...] average glucose, using the formula of the B7P-Mbcjzqa Average Glucose study (ADAG), Diabetes Care, Vol.31,#8, 2007 UA ClnCatch+Micro w/rflx Cul t (Not yet reviewed by provider) Interpretation: Performing Lab:[facility], [address] [place] [phone] Notes/Report: Urine, Clean Catch Color Urine Yellow Appearance Urine Clear PH 6.5 5.0-9.0 Glucose Urine UA Negative Negative mg/dL Urine Blood Negative Negative Specific Wolford - Urine 1.010 1.005-1.025 Urine Protein Negative [...] Location Date Provider Diagnosis Jay Rushing MD [address] [place] [address] [address] [place], [place] [phone] 05/22/2024 Jay Rushing Blood tests for routine general physical examination Z00.00 and Prediabetes R73.09 Assessments Encounter Date Diagnosis (ICD Code) Assessment Notes Treatment Notes Treatment Clinical Notes Section Notes 05/22/2024 Blood tests for routine general physical examination (ICD-10 - Z00.00) 05/22/2024 Prediabetes (ICD-10 - R73.09) Plan Of Treatment Pending Test Test Name Order Date Complete Blood Count Auto Diff Comprehensive Success. Panel Fast Lipid Panel 05/22/2024 PSA,Total (Free>4and<10) 05/22/2024 Microalbumin, Random 05/22/2024 Hemoglobin A1c 05/22/2024 UA ClnCatch+Micro w/rflx Cult 05/22/2024 Next Appt Details Provider Name:Jay Bourne ier, 05/29/2024 08:30:00 AM, [address] [place] [address], [address], [place], [place], [phone], Progress Notes * David FORBES FDOB:1955 (69 yo M)Acc No.[id number]:05/22/2024 Progress Note Patient:?LEIDYDavid F Provider:?Jay Rushing MD :1955???Age:69 Y???Sex:Male Mynor e:05/22/2024 Address:[address] [place], [place] [phone] Subjective: * Chief Complaints: * ???1. Yearly fasting labs. * Medical History:? Objective: * Vitals:? Assessment: * Assessment: 1.?Blood tests for routine g eneral physical examination - Z00.00 (Primary)???2.?Prediabetes - R73.09??? Plan: * Treatment: 2.?Prediabetes?LAB: Complete Blood Count Auto Diff (Collection Date & Time - 05/22/2024 07:00 AM) ?LAB: Comprehensive Success. Panel Fast (Collection Date & Time - 05/22/2024 07:00 AM) ?LAB: Lipid Panel (Collection Date & Time - 05/22/2024 07:00 AM) ?LAB: PSA,Total (Free>4and<10) ?LAB: Microalbumin, Random ?LAB: Hemoglobin A1c (Collection Date & Time - 05/22/2024 07:00 AM) ?LAB: UA ClnCatch+Micro w/rflx Cult (Collection Date & Time - 05/22/2024 07:00 AM) * Procedure Codes:?95935 VENIP UNCT, ROUTINE* * * The named appointment provid er may or may not be the originator of this progress note, and it is not deemed complete until electronically signed by the appointment provider. Sign off status: Pending * Provider:?Jay Rushing MD Date:?0 05/22/2024 Generated for Cierra marshall/Mika/Nitaitting on:?05/22/2024 11:42 AM EST
--- OUTSIDE RECORDS SUMMARY | 2024-05-22 11:43 | XMS_ITS ---
Author Organization Jay Rushing MD Address [address] [place] [id number] Care Team Providers Care Senior Service Aide Name Role Phone Jay Rushing Primary Care Provider Allergies Allergen (clinical drug ingredient) Drug/Non Drug Allergy documented on EMR Reaction Allergy Type Onset Date Status Vaccine product containing Influenza virus antigen (medicinal product) Flu Vac (uncoded) anaphylaxis Allergy Act manjula REASON FOR VISIT ANNUAL EXAM, No Covid symptoms Medications Medication SIG (Take, Route, Frequency, Duration) Notes Start Date End Date Status Esomeprazole Magnesium 40 MG 1 capsule Orally Once a day Active Social History Tobacco Use: Social History Observation [...] Never (0 point) Points 4 Interpretation Positive Vital Signs Blood pressure systolic 124 mm Hg 05/27/19 24 Blood pressure diastolic 66 mm Hg 024 Height 69 in 05/27/2023 Weight 163 lbs 05/27/2023 BMI 24.07 kg/m2 05/27/2023 weight is down 4 pounds [facility] 05-25-22 Encounters Encounter Location Date Provider Diagnosis Jay Rushing MD [address] [place], [place] [id number] 05/27/2023 Jay Rushing Chronic cough R05.3 ; Annual physical exam Z00.00 ; Schatzki's ring K22.2 and Family history of colon cancer Z80.0 Assessments Encounter Date Diagnosis (ICD Code) Assessment Notes Treatment Notes Treatment Clinical Notes Section Notes 05/27/2023 Chronic cough (ICD-10 - R05.3) order given to patient to Have done at [facility] [place] 05/27/2023 Annual physical exam (ICD-10 - Z00.00) labs reviewed and discussed with pt 05/27/2023 Schatzki's ring (ICD-10 - K22.2) occasionally with reflux 05/27/2023 Family history of colon cancer (ICD-10 - Z80.0) due for colonoscopy in 2 years Plan Of Treatment Treatment Notes Assessment Notes Chronic cough order given to patie nt to Have done at [facility] [place] Annual physical exam labs reviewed and d iscussed with pt Schatzki's ring occasionally with re flux Family history of colon cancer due for c olonoscopy in 2 years Pending Test Test Name Order Date XR CHEST 2 VIEW PA & LAT 05/27/2023 Next Appt Details Follow Up: 1 Year, Reason: Provider Name:Jay Bourne ier, 05/29/2024 08:30:00 AM, [address], [address], [place], [place], [id number], Progress Notes * David FORBES FDOB:1955 (68 yo M)Acc No.[id number]:05/27/2023 Progress Notes Patient:?David Forbes Javier Provider:?Jay Rushing MD :1955???Age:68 Y???Sex:Male Mynor e:05/27/2023 Address:[address] [place] [address], [id number] Subjective: * Chief Complaints: * ???ANNUAL EXAMNo Covid sympt oms * HPI: ???Depression Screening:?PHQ-9?Little interest or pleasure in doing things?Not at all,?Feeling down, depressed, or hopeless?Not at all,?Trouble falling or staying asleep, or sleeping too much?Not at all,?Feeling tired or having little energy?Not at all,?Poor appetite or overeating?Not at all,?Feeling bad about yourself or that you are a failure, or have let yourself or your family down?Not at all,?Trouble concentrating on things, such as reading the newspaper or watching television?Not at all,?Moving or speaking so slowly that other people could have noticed; or the opposite, being so fidgety or restless that you have been moving around a lot more than usual?Not at all,?Thoughts that you would be better off or of hurting yourself in some way?Not at all,?Total Score?0.?Communication Needs:?Communication Needs?Does the patient have a hearing impairment?No,?Does the patient have a vision impairment??Yes,?If yes, what is the vision impairment??Glasses,?Does the patient have a cognition impairment??No.?Fall Risk:?History?Have you had any falls with injury in the past year??No,?Have you had two or more falls in the past year??No.?SDOH Questions:?SDOH Questions?In the past year have you been worried about losing housing??No,?In the past year have you or any family members you live with been unable to get any of the following when it was really needed? Check all that apply:?None.?Symptom(s):? pt is a 68 yo male here for annual exam. * ROS:?General/Constitutional:?Change in appetite?denies.?Chills?denies.?Fever?denies.?Ophthalmologic:?Blurred vision?denies.?Discharge?denies.?Pain?denies.?ENT:?Decreased hearing?denies.?Sore throat?denies.?Swollen glands?denies.?Endocrine:?Cold intolerance?denies.?Excessive thirst?denies.?Heat intolerance?denies.?Weight loss?denies.?Respiratory:?Cough?admits.?Shortness of breath at rest?denies.?Shortness of breath with exertion?denies.?Wheezing?denies.?Cardiovascular:?Chest pain at rest?denies.?Chest pain with exertion?denies.?Irregular heartbeat?denies.?Shortness of breath?denies.?Gastrointestinal:?Abdominal pain?denies.?Change in bowel habits?denies.?Diarrhea?denies.?Nausea?denies.?Rectal bleeding?denies.?Vomiting?denies .?Genitourinary:?Blood in urine?denies.?Difficulty urinating?denies.?Frequent urination?denies.?Musculoskeletal:?Painful joints?denies.?Weakness?denies.?Skin:?Dry skin?denies.?Itching?denies.?Denies?Mole(s),? changes in moles, new moles or any lesions of concern.?Denies?Photosensitivity.?Rash?denies.?Neurologic:?Dizziness?denies.?Fainting?denies.?Headache?denies.? * Medical History:? * Surgical History:? * Hospitalization/Major Diagno stic Procedure:? * Family History:?Father: dece ased 82 yrs, family history unknown .?Mother: 92 yrs.?4 brother(s) . 1 daughter(s) - healthy. .? Mother-CVA father-organ failure, Denies mental health/substance abuse family history, No pertinent family medical history, No pertinent family medical history, Denies mental health/substance abuse family history. * Social History:?Tobacco Use:?Tobacco Use/Smoking?Patient is a?former smoker,?How long has it been since you last smoked??> 10 years,?Additional Findings: Tobacco Non-User?Former smoker, currently using no form of tobacco.?Drugs/Alcohol:?Alcohol Screen?Did you have a drink containing alcohol in the past year??Yes,?How often did you have a drink containing alcohol in the past year??4 or more times a week (4 points),?How many drinks did you have on a typical day when you were drinking in the past year??1 or 2 drinks (0 point),?How often did you have 6 or more drinks on one occasion in the past year??Never (0 point),?Points?4,?Interpretation?Positive.?Miscellaneous:?Caffeine: yes, frequency:, 2-3 cups per day. Children: yes. Exercise: yes, walks half hour QD. Home smoke detector use: yes. Living with: significant other. Marital status: single. Occupation: retired. Pets: none. no Travel outside of the [place]. * Medications:?TakingEsomepraz ole Magnesium 40 MG Capsule Delayed Release 1 capsule Orally Once a dayMedication List reviewed and reconciled with the patientTaking Esomeprazole Magnesium 40 MG Capsule Delayed Release 1 capsule Orally Once a dayMedication List reviewed and reconciled with the patient * Allergies:?Flu Vac: anaphyla xisyes[Allergies Verified] Objective: * Vitals:?Ht: 69, Wt:163, BMI: 24.07, BP:124/66 weight is down 4 pounds since 05-25-22. * ???Past Orders: ???Lab:Hemoglobin A1c (Order Date - 05/20/2023) (Collection Date - 05/20/2023) ? Value Reference Range ?Hemoglobin A1c % 5.4 <6. 0 - % ?Estimated Average Glucose 108 - mg/dL ???Lab:Complete Blood Count Auto Diff (Order Date - 05/20/2023) (Collection Date - 05/20/2023) ? Value Reference Range ?White Blood Count 4.6 L 4. 8-10.8 - X10*3/uL ?Red Blood Count 5.14 4.60 -5.80 - X10*6/uL ?Hemoglobin 15.1 14.0-18.0 - g/dl ?Hematocrit 45.2 42.0-52.0 - % ?Mean Corpuscular Volume 87.9 80.0-98.0 - fL ?Mean Corpuscular Hemoglobin 29.4 27.0-33.0 - pg ?Mean Corpuscular HGB Conc 33.4 31.0-36.0 - g/dl ?Red Cell Distribution Width 11.9 11.0-16.0 - % ?Platelet Count 224 160-4 00 - X10*3/uL ?Mean Platelet Volume 10.6 9.4-12.4 - fL ?Neutrophils Percent Auto 45.9 45-73 - % ?Imm Gran Pct Auto 0.2 0. 0-0.4 - % ?Lymphocytes Percent Auto 30.0 20-40 - % ?Monocytes Percent Auto 11.5 H 2-11 - % ?Eosinophils Percent Auto 11.5 H 0-4 - % ?Basophils Percent Auto 0.9 0-2 - % ?NRBC Pct Auto 0.0 0.0-0. 2 - /100WBC ?Neutrophils Absolute Auto 2.1 2.0-8.3 - x10*3/uL ?Imm Gran Abs Auto 0.01 0. 00-0.03 - X10*3/uL ?Lymphocytes Absolute Auto 1.4 1.2-4.9 - X10*3/uL ?Monocytes Absolute Auto 0.5 0.1-1.2 - X10*3/uL ?Eosinophils Absolute Auto 0.5 H 0.0-0.4 - X10*3/uL ?Basophils Absolute Auto 0.0 0.0-0.2 - X10*3/uL ?NRBC Abs Auto 0.000 0.0-0. 012 - X10*3/uL ???Lab:UA ClnCatch+Micro w/r flx Cult (Order Date - 05/20/2023) (Collection Date - 05/20/2023) ? Value Reference Range ?Color Urine Yellow - ?Appearance Urine Clear - ?PH 5.5 5.0-9.0 - ?Glucose Urine UA Negative Neg ative - mg/dL ?Urine Blood Negative Negative - ?Specific [place] - Urine 1.015 1.005-1.025 - ?Urine Protein Negative Neg-Tr daniel - mg/dL ?Urine Ketones Negative Negati ve - mg/dL ?Nitrite Urine Negative Negati ve - ?Leukocyte Esterase Urine Negative Negative - ?RBC Urine 0-2 0-2 - /HPF ?WBC Urine 0-5 0-5 - /HPF ?Squamous Epithelial Cell Urine 0-2 0-2 - /HPF ?Bacteria Urine None Seen None Seen - ?Hyaline Casts Urine 0-2 0-2 - /LPF ???Lab:Comprehensive [place]. P esha Fast (Order Date - 05/20/2023) (Collection Date - 05/20/2023) ? Value Reference Range ?Sodium 141 135-145 - mmo l/L ?Bilirubin Total 0.5 0.0- 1.0 - mg/dL ?Aspartate Amino Transferase 27 5-37 - U/L ?Alanine Aminotransferase 33 0-40 - U/L ?Total Protein 6.7 6.5-8. 0 - g/dL ?Albumin Level 4.2 3.5-5. 0 - g/dL ?Alkaline Phosphatase 43 39-117 - U/L ?Potassium 4.0 3.3-5.1 - mmol/L ?Chloride 108 96-108 - mm ol/L ?Carbon Dioxide 26 22-29 - mmol/L ?Anion Gap 11 L 12-20 - ?Blood Urea Nitrogen 27 H 9-16 - mg/dL ?Creatinine 0.87 0.5-1.4 - mg/dL ?Estimated Glomerular Filt Rate > 60 - ?Glucose Fasting 90 60-9 9 - mg/dL ?Calcium 9.2 8.4-10.2 - m g/dL ???Lab:Lipid Panel (Order Da 05/20/2023) (Collection Date 05/20/2023) ? Value Reference Range ?Triglycerides 139 <150 - mg/dL ?Cholesterol 204 H <200 - m g/dL ?LDL Cholesterol Calculated 113 H <100 - mg/dL ?HDL Cholesterol 64 >40 - mg/dL ???Lab:PSA,Total (Free>4and< 10) (Order 05/20/2023) (Collection 05/20/2023) ? Value Reference Range ?PSA,Total (Free>4and<10) 0.41 0.00-4.00 - ng/mL ???Lab:Microalbumin, Random (Order 05/20/2023) (Collection - 05/20/2023) ? Value Reference Range ?Creatinine Urine 68.37 - m g/dL ?Microalbumin Urine < 5.0 - mg/L ?Microalbum Creatinine Ratio Ur TNP <30 - ug/mg cr * Examination: ???General Examination: ?GENERAL APPEARANCE:?well developed, well nourished, in no acute distress.?HEAD:?normocephalic, atraumatic.?EYES:?pupils equal, round, reactive to light and accommodation, sclera non-icteric.?EARS:?normal.?ORAL CAVITY:?mucosa moist.?THROAT:?clear.?NECK/THYROID:?neck supple, full range of motion, no cervical lymphadenopathy, no bruits.?SKIN:?warm and dry, no suspicious lesions.?HEART:?regular rate and rhythm, S1, S2 normal, no murmurs.?LUNGS:?clear to auscultation bilaterally.?ABDOMEN:?soft, nontender, nondistended, bowel sounds present, normal, no organomegaly , no masses palpable.?RECTAL EXAM:?normal tone, no external hemorrhoids, no masses palpable, prostate normal, no stool sent with card.?MALE GENITOURINARY:?no testicular mass, testes descended bilaterally.?EXTREMITIES:?no clubbing, cyanosis, or edema.?NEUROLOGIC:?nonfocal, motor strength normal upper and lower extremities, sensory exam intact.? Assessment: * Assessment: 1.?Annual physical exam - Z0 0.00 (Primary)?2.?Chronic cough - R05.3?3.?Schatzki's ring - K22.2?4.?Family history of colon cancer - Z80.0? Plan: * Treatment: 2.?Chronic cough?Imaging: XR CHEST 2 VIEW PA & LAT Notes: order given to patient to Have done at [facility] [place].?? 3.?Schatzki's ring? Notes: occasionally with reflux.?? 4.?Family history of colon c ancer? Notes: due for colonoscopy in 2 years.?? * Procedure Codes:? * Follow Up:?1 Year * * Sign off status: Completed true * Provider:?Jay Rushing MD Date:?0 05/27/2023 Generated for [employer] joanna/Miak/eTransmitting on:?05/22/2024 11:42 AM EST History and Physical Notes * HPI (History of Present Illness) Category Sub-Category Detail Notes Category Not es Symptom(s) pt is a 68 yo male here for annual exam Depression Screening PHQ-9 Little inte rest or pleasure in doing things: Not at all Feeling down, depressed, or hopeless: No t at all Trouble falling or staying asleep, or sl eeping too much: Not at all Feeling tired or having little energy: N ot at all Poor appetite or overeating: Not at all Feeling bad about yourself o r that you are a failure, or have let yourself or your family down: Not at all Trouble concentrating on thi ngs, such as reading the newspaper or watching television: Not at all Moving or speaking so slowly that other people could have noticed; or the opposite, being so fidgety or restless that you have been moving around a lot more than usual: Not at all Thoughts that you would be b clayton off or of hurting yourself in some way: Not at all Total Score: 0 SDOH Questions SDOH Questions In the past year have you been worried about losing housing?: No In the past year have you or any family members you live with been unable to get any of the following when it was really needed? Check all that apply:: None Fall Risk History Have you had any falls with injury i n the past year?: No Have you had two or more falls in the year?: No Communication Needs Communication Needs Does the patient have a hearing impairment: No Does the patient have a vision impairmen t?: Yes ?If yes, what is the vision impairment?: Glasses Does the patient have a cognition impair ment?: No Examination Category Sub-Category Detail Notes Category Not es General Examination GENERAL APPEARANCE: well dev eloped, well nourished, in no acute distress HEAD: normocephalic, atrau matic EYES: pupils equal, round, reactive to light and accommodation, sclera non- icteric EARS: normal THROAT: clear NECK/THYROID: neck supple, full ra nge of motion, no cervical lymphadenopathy, no bruits HEART: regular rate and rhy thm, S1, S2 normal, no murmurs LUNGS: clear to auscultatio n bilaterally ABDOMEN: soft, nontender, non distended, bowel sounds present, normal, no organomegaly , no masses palpable NEUROLOGIC: nonfocal, motor stre ngth normal upper and lower extremities, sensory exam intact SKIN: warm and dry, no mariam picious lesions EXTREMITIES: no clubbing, cyanosi s, or edema MALE GENITOURINARY: no testicular mass, testes descended bilaterally RECTAL EXAM: normal tone, no exte rnal hemorrhoids, no masses palpable, prostate normal, no stool sent with card ORAL CAVITY: mucosa moist
[2024-05-22 11:45] LABS: PSA,Total (Free>4and<10) 0.56 ng/mL (0.00-4.00)
[2024-05-22 12:41] LABS: Creatinine Urine 44.27 mg/dL; Microalbumin Urine < 5.0 mg/L
== END 2024-05-22 10:26 | disposition home or self-care (01) ==
LOC: HO.LNP 10:25
PROVIDERS: Visit Provider Internal Medicine
DX: Z00.00 Encounter for general adult medical examination without abnormal findings (principal); R73.03 Prediabetes; Z12.5 Encounter for screening for malignant neoplasm of prostate; Z13.6 Encounter for screening for cardiovascular disorders
CPT/HCPCS: 80053; 80061; 81001; 82043; 82570; 83036; 84153; 85025

== ENCOUNTER 2024-11-11 09:50 | Outpatient (AMB) | payer MEDICARE, SELFPAY ==
--- OUTSIDE RECORDS SUMMARY | 2024-05-22 03:00 | XMS_ITS ---
Author Organization Jay Rushing MD Address [address] [place], [place] [phone] Care Team Providers Care Chemical Etching Processor Name Role Phone Jay Rushing Primary Care Provider Results Component Value Reference Range Notes Complete Blood Count Auto Di ff Reviewed date:05/22/2024 12:33:12 PM Interpretation: Performing Lab:[facility], [address] [place] [phone] Notes/Report: White Blood Count 5.5 4.8-10.8 X10*3/uL [...] NRBC Abs Auto 0.000 0.0-0.012 X10*3/uL Comprehensive [place]. Panel Fa st Reviewed date:05/22/2024 12:08:10 PM Interpretation: Performing Lab:[address] [phone] Notes/Report: Sodium 140 135-145 mmol/L Potassium 3.9 [...] Panel Reviewed date:05/22/2024 12:09:13 PM Interpretation: Performing Lab:[address] [phone] Notes/Report: Triglycerides 111 <150 mg/dL Desirable Triglyceride: [...] (Free>4and<10) Reviewed date:05/22/2024 12:08:41 PM Interpretation: Performing Lab:[address] [phone] Notes/Report: PSA,Total (Free>4and<10) 0.56 0.00-4.00 ng/mL A [...] Random Reviewed date:05/22/2024 12:46:04 PM Interpretation: Performing Lab:[address] [phone] Notes/Report: Creatinine Urine 44.27 Microalbumin Urine < 5.0 Microalbum/Creatinine Ratio Ur TNP <30 ug/mg cr Unable to calculate albumin/creatinine ratio due to low microalbumin or creatinine result. Hemoglobin A1c Reviewed date:05/22/2024 12:08:19 PM Interpretation: Performing Lab:[address] [phone] Notes/Report: Hemoglobin A1c % 5.2 <6.0 % [...] average glucose, using the formula of the S5A-Jipwvmi Average Glucose study (ADAG), Diabetes Care, Vol.31,#8, Oct. 2007 UA ClnCatch+Micro w/rflx Cul t Reviewed date:05/22/2024 12:34:09 PM Interpretation: Performing Lab:[facility], [address] [place] [phone] Notes/Report: Urine, Clean Catch Color Urine Yellow Appearance Urine Clear PH 6.5 5.0-9.0 Glucose Urine UA Negative Negative mg/dL Urine Blood Negative Negative Specific [place] - Urine 1.010 1.005-1.025 Urine Protein Negative [...] Date Provider Diagnosis Jay Rushing MD [address] [place] [address] [place] [phone] 05/22/2024 Jay Rushing Blood tests for routine general physical examination Z00.00 and Prediabetes R73.09 Assessments Encounter Date Diagnosis (ICD Code) Assessment Notes Treatment Notes Treatment Clinical Notes Section Notes 05/22/2024 Blood tests for routine general physical examination (ICD-10 - Z00.00) 05/22/2024 Prediabetes (ICD-10 - R73.09) Plan Of Treatment Next Appt Details Provider Name:Jay romero, 05/28/2025 07:00:00 AM, [address] [place] [address], [address] [place] [address], [phone], Provider Name:Jay romero, 06/04/2025 08:30:00 AM, [address] [place] [address], Suite [facility], [place], [place], [phone], Progress Notes * David FORBES FDOB:1955 (69 yo M)Acc No.[id number]:05/22/2024 Progress Note Patient: David ALMEIDA Provider: Dami Rushing MD :1955 A ge:69 Y S ex:Male Date:05/22/2024 Address:[address] [place] [address], [facility] Subjective: * Chief Complaints: * 1 . Yearly fasting labs. * Medical History: Objective: * Vitals: Assessment: * Assessment: 1. B lood tests for routine general physical examination - Z00.00 (Primary) 2 .?Prediabetes - R73.09 Plan: * Treatment: 2. P rediabetes L AB: Complete Blood Count Auto Diff (Collection Date & Time - 05/22/2024 07:00 AM) L AB: Comprehensive [place]. Panel Fast (Collection Date & Time - [...] 05/22/2024 Generated for Sridhari ng/Faxing/eTransmitting on: 0 11/11/2024 10:29 AM EDT
--- OUTSIDE RECORDS SUMMARY | 2024-05-29 04:30 | XMS_ITS ---
Author Organization Jay Rushing MD Address [address] [place] [phone] Care Team Providers Care Service Station Manager Name Role Phone Jay Rushing Primary Care Provider [phone] Allergies Allergen (clinical drug ingredient) Drug/Non Drug [...] Location Date Provider Diagnosis Jay Rushing MD [address] [place] [address] [place] [phone] 05/29/2024 Jay Rushing Prediabetes R73.09 ; Annual [...] Reason: Provider Name:Jay romero, 05/28/2025 07:00:00 AM, [address] [place] [address], Suite [facility], [place], [place], [phone], Provider Name:Jay romero, 06/04/2025 08:30:00 AM, [address] [place] [address], Suite [facility], [place], [place], [phone], Progress Notes * David FORBES FDOB:1955 (69 yo M)Acc No.[id number]:05/29/2024 Progress Notes Patient: David ALMEIDA Provider: Dami Rushing MD :1955 A ge:69 Y S ex:Male Date:05/29/2024 Address:[address] [place], [place] [address], [place] Subjective: * Chief Complaints: * A nnual [...] mg/dL Urine Blood Negative Negative - Specific [place] - Urine 1.010 1.005-1.025 - Urine Protein [...] Auto 0.000 0.0-0.012 - X10*3/uL L ab:Comprehensive [place]. Panel Fast (Order Date - 05/22/2024) (Collection [...] MD Date: 0 05/29/2024 Generated for Cierra marshall/Mika/Nitaitting on: 0 11/11/2024 10:30 AM EDT History and Physical Notes * HPI [...]
--- OUTSIDE RECORDS SUMMARY | 2024-06-01 09:13 | XMS_ITS ---
Author Organization Jay Rushing MD Address [address] [place] [phone] Care Team Providers Care Assistant Secretary Name Role Phone Jay Rushing Primary Care Provider Results Component Value Reference Range Notes Occult Blood, Stool, Guaiac Reviewed date:07/30/2024 01:57:24 PM Interpretation:Negative Performing Lab: Notes/Report: Negative Occult Blood, Stool, Guaiac Neg x 2 REASON FOR VISIT stool cards Encounters Encounter Location Date Provider Diagnosis Jay Rushing MD [address] [place] [address] [place] [phone] 06/01/2024 Jay Rushing Colon cancer screening Z12.11 Assessments Encounter Date Diagnosis (ICD Code) Assessment Notes Treatment Notes Treatment Clinical Notes Section Notes 06/01/2024 Colon cancer screening (ICD-10 - Z12.11) Plan Of Treatment Next Appt Details Provider Name:Jay romero, 05/28/2025 07:00:00 AM, [address] [place] [address], [address], [phone], Provider Name:Jay romero, 06/04/2025 08:30:00 AM, [address] [place] [address], [address], [phone], Progress Notes * David FORBES FDOB:1955 (69 yo M)Acc No.[id number]:06/01/2024 Patient: Hilario GIANFRANCO David Javier :1955 A ge:69 Y S ex:Male Address:[address] [place] [address], [place] [address] Subjective: * Chief Complaints: * S tool cards * Medical History: * Surgical History: * Hospitalization/Major Diagno stic Procedure: * Medications: Objective: * Vitals: * Physical Examination: Assessment: * Assessment: 1. C [facility] cancer screening - Z12.11 (Primary) Plan: * Treatment: Value Reference Range O ccult Blood, Stool, Guaiac Neg x 2 * Procedure Codes: 8 2270 TEST FOR BLOOD, FECES * true * Date: Generated for Cierra marshall/Mika/eTdanasmitting on: 0 11/11/2024 10:30 AM EDT
--- OUTSIDE RECORDS SUMMARY | 2024-11-11 10:30 | XMS_ITS | Clinical Summary ---
Author Organization [facility] Facility Address [address] [place] [address] Care Team Providers Care Bore Miner Operator Name Role Phone Jay Rushing MD Primary [...] Colorectal Cancer Screening: Sigmoidoscopy 2006 Pneumococcal Vaccine: 50+ Ye ars (1 of 1 - PCV) 2007 Hepatitis B Vaccine Aged Out No longe r eligible based on patient's age to complete this topic Insurance Aet Commercial Aetna Commercial Care Teams Bore Miner Operator Relationship Specialty Start Date End Date Jay Rushing MD [address] [place], [place] PCP - General Internal Medicine 08/19/20
--- OUTSIDE RECORDS SUMMARY | 2024-11-11 10:30 | XMS_ITS | Patient Health Record ---
Author Organization [facility] Address [address] [place] [address] Care Team Providers Care Dry Charge Process Attendant Name Role Phone Jay Rushing MD Primary Care Provider Henrique Hidalgo Unavailable [phone] Allergies Allergen (clinical drug ingredient) Drug/Non Drug [...] Problem Status W/U Status Risk Notes Problem 187753220 Encounter for screening for malignant neoplasm of colon (Z12.11) Active confirmed Problem Encounter for screening for malignant neoplasm of rectum (Z12.12) Active confirmed Problem 92965375 Preprocedural examination (Z01.818) Active confirmed Problem 938451112 Family history o f colon cancer (Z80.0) Active confirmed Problem Diverticulosis of sigmoid colon (356035898) Diverticulosis of sigmoid colon (K57.30) Active confirmed Problem 463675580 Family history o f colon cancer in father (Z80.0) Active confirmed Plan Of Treatment Future Test Test Name Order Date COLONOSCOPY 07/26/2015 COLONOSCOPY 08/23/2020 Insurance Providers Payer Name Payer Address Payer Phone Subscriber Number Group Number Insured Name Patient Relationship to Insured Coverage Start Date Coverage End Date Aetna (No Referra l) [address] [place] [id number] OCHOA FORBES Self - patient is the insured Medical (General) History Medical History History ICD Code Colonoscopy in 2004 and on ---diverticulosis and inrternal hemorrhoids Denies [place],DM,CVA,Lung disease,renal dise ase Seasonal allergies Negative colonoscopy in 10/2015 Surgical History Surgery Date(Month/Year) Right inguinal hernia surgery Vasectomy Left hernia repair Nasal polyp/deviated septum
--- OUTSIDE RECORDS SUMMARY | 2024-11-11 10:30 | XMS_ITS | Patient Health Record ---
Author Organization Jay Rushing MD Address [address] [place], [place] [phone] Care Team Providers Care Software Testing Specialist Name Role Phone Jay Rushing Primary Care Provider [phone] Allergies Allergen (clinical drug ingredient) Drug/Non Drug Allergy documented on EMR Reaction Allergy Type Onset Date Status Vaccine product containing Influenza virus antigen (medicinal product) Flu Vac (uncoded) anaphylaxis Allergy Act manjula Results Component Value Reference Range Notes Complete Blood Count Auto Di ff Reviewed date:05/22/2024 12:33:12 PM Interpretation: Performing Lab:[facility], [address] [place] [phone] Notes/Report: White Blood Count 5.5 4.8-10.8 X10*3/uL [...] NRBC Abs Auto 0.000 0.0-0.012 X10*3/uL Comprehensive [place]. Panel Fa Reviewed date:05/22/2024 12:08:10 PM Interpretation: Performing Lab:[facility], [address] [place] [phone] Notes/Report: Sodium 140 135-145 mmol/L Potassium 3.9 [...] Panel Reviewed date:05/22/2024 12:09:13 PM Interpretation: Performing Lab:[facility], [address] [place] [phone] Notes/Report: Triglycerides 111 <150 mg/dL Desirable Triglyceride: [...] (Free>4and<10) Reviewed date:05/22/2024 12:08:41 PM Interpretation: Performing Lab:[address] [phone] Notes/Report: PSA,Total (Free>4and<10) 0.56 0.00-4.00 ng/mL A [...] Random Reviewed date:05/22/2024 12:46:04 PM Interpretation: Performing Lab:[address] [address] Notes/Report: Creatinine Urine 44.27 Microalbumin Urine < 5.0 Microalbum/Creatinine Ratio Ur TNP <30 ug/mg cr Unable to calculate albumin/creatinine ratio due to low microalbumin or creatinine result. Hemoglobin A1c Reviewed date:05/22/2024 12:08:19 PM Interpretation: Performing Lab:[address] [phone] Notes/Report: Hemoglobin A1c % 5.2 <6.0 % [...] average glucose, using the formula of the M1L-Qfwlvvj Average Glucose study (ADAG), Diabetes Care, Vol.31,#8, Oct. 2007 UA ClnCatch+Micro w/rflx Cul t Reviewed date:05/22/2024 12:34:09 PM Interpretation: Performing Lab:[facility], [address] [place] [phone] Notes/Report: Urine, Clean Catch Color Urine Yellow Appearance Urine Clear PH 6.5 5.0-9.0 Glucose Urine UA Negative Negative mg/dL Urine Blood Negative Negative Specific [place] - Urine 1.010 1.005-1.025 Urine Protein Negative Neg-Trace mg/dL Urine Ketones Negative Negative mg/dL Nitrite Urine Negative Negative Leukocyte Esterase Urine Negative Negative RBC Urine 0-2 0-2 /HPF WBC Urine 0-5 0-5 /HPF Squamous Epithelial Cell Urine 0-2 0-2 /HPF Bacteria Urine None Seen None Seen Hyaline Casts Urine 0-2 0-2 /LPF Occult Blood, Stool, Guaiac Reviewed date:05/29/2024 10:50:16 AM Interpretation:Negative Performing Lab: Notes/Report: Negative Occult Blood, Stool, Guaiac Neg Occult Blood, Stool, Guaiac Reviewed date:07/30/2024 01:57:24 PM Interpretation:Negative Performing Lab: Notes/Report: Negative Occult Blood, Stool, Guaiac Neg x 2 Reason For Referral No Information Medications Medication [...] Localized osteoarthrosis uncertain if primary OR secondary (66301440) Localized osteoarthrosis not specified whether primary or secondary, hand (715.34) Active confirmed Problem Acid reflux (568955932) Acid reflux (K21.9) Active confirmed Problem 3836012 Prediabetes (R73.09) Active confirmed Problem 614298434 Schatzki's ring (K22.2) Active confirmed Problem 876520640 Family history o f colon cancer (Z80.0) Active confirmed Problem 5863547668373 Bilateral nonpulsatile tinnitus (H93.13) Active confirmed Vital Signs Blood pressure diastolic 70 mm Hg 05/29/2024 Height 69 in 05/29/2024 Blood pressure systolic 122 mm Hg 05/29/2024 Weight 162 lbs 05/29/2024 BMI 23.92 kg/m2 05/29/2024 Encounters Encounter Location Date Provider Diagnosis Jay Rushing MD [address] [place] [address] [address] [place], [place] [phone] 05/22/2024 Jay Rushing Blood tests for routine general physical examination Z00.00 and Prediabetes R73.09 Jay Rushing MD [address] [place] [address] Drive [address] [place] [phone] 05/29/2024 Jay Rushing Prediabetes R73.09 ; Annual physical exam Z00.00 ; Acid reflux K21.9 ; Colon cancer screening Z12.11 and Depression screening Z13.31 Jay Rushing MD [address] [place] [address] Drive [address] [place] [phone] 06/01/2024 Jay Rushing Colon cancer screening Z12.11 Assessments Encounter Date Diagnosis (ICD Code) Assessment Notes Treatment Notes Treatment Clinical Notes Section Notes 05/22/2024 Blood tests for routine general physical examination (ICD-10 - Z00.00) 05/29/2024 Prediabetes (ICD-10 - R73.09) doing great, no need for medication at this time, will continue to monitor 05/29/2024 Annual physical exam (ICD-10 - Z00.00) labs reviewed and discussed with patient 06/01/2024 Colon cancer screening (ICD-10 - Z12.11) 05/22/2024 Prediabetes (ICD-10 - R73.09) 05/29/2024 Acid reflux (ICD-10 - K21.9) stable, will continue current regiment 05/29/2024 Colon cancer screening (ICD-10 - Z12.11) guaiac negative 05/29/2024 Depression screening (ICD-10 - Z13.31) negative screen Plan Of Treatment Pending Test Test Name Order Date Electrocardiogram (EKG) 05/02/2017 Electrocardiogram (EKG) 05/08/2018 XR CHEST 2 VIEW PA & LAT 05/27/2023 Next Appt Details Provider Name:Jay romero, 05/28/2025 07:00:00 AM, [address] [place] [address], [place] [address], [place], [place], [phone], Provider Name:Jay romero, 06/04/2025 08:30:00 AM, [address] [place] [address], [place] [address], [place], [place], [phone], Insurance Providers Payer Name Payer Address Payer Phone Subscriber Number Group Number Insured Name Patient Relationship to Insured Coverage Start Date Coverage End Date AETNA MEDICARE ADVANTAGE [address] [place] [id number] David Griffith Self - patient is the insured Medical (General) History Medical History History ICD Code colonoscopy - 12/18/10; colon oscopy done 11/03/15 w/Dr. Henson - repeat 5 yrs due to family hx of colon cancer colonoscopy 10/05, repeat 5 yrs
--- OUTSIDE RECORDS SUMMARY | 2024-11-11 10:30 | XMS_ITS | Patient Health Record ---
Author Organization [facility] Address [address] [place] [address] Care Team Providers Care Recreation Program Coordinator Name Role Phone Jay Rushing MD Primary Care Provider Cyndee Garcia Unavailable [phone] Allergies Allergen (clinical drug ingredient) Drug/Non Drug Allergy documented on EMR Reaction Allergy Type Onset Date Status Vaccine product containing Influenza virus antigen (medicinal product) flu shot (uncoded) shock Allergy Ac tive Reason For Referral No Information Medications Medication SIG (Take, Route, Fr equency, Duration) Notes Start Date End Date Status Ibuprofen Active Nasacort Allergy 24HR Active Social History Tobacco Use: Social History Observation Description Date Details (start date - stop date) Former Smoker NA - NA Tobacco Use/Smoking Question Answer Notes Are you a: former smoker When did you stop smoking? 1989 Additional Findings: Tobacco Non-User Current no n-smoker Alcohol Screen Question Answer Notes Did you have a drink contain ing alcohol in the past year? Yes How often did you have a dri nk containing alcohol in the past year? 2 to 3 times a week (3 points) How many drinks did you have on a typical day when you were drinking in the past year? 1 or 2 drinks (0 point) How often did you have 6 or more drinks on one occasion in the past year? Never (0 point) Points 3 Interpretation Negative Tobacco use other than smoking: Question Answer Notes Are you an other tobacco user? No Problems Problem Type SNOMED Code ICD Code Onset Dates Problem Status W/U Status Risk Notes Problem Plantar wart (72503566) Plantar wart (B07.0) Active confirmed Plan Of Treatment No Information Insurance Providers Payer Name Payer Address Payer Phone Subscriber Number Group Number Insured Name Patient Relationship to Insured Coverage Start Date Coverage End Date Aetna Choice POS [address] [address] [place] [id number] David Griffith Self - patient is the insured Medical (General) History Medical History History ICD Code Hiatal hernia Measles Mumps Chicken pox Surgical History Surgery Date(Month/Year) hernia 1996 vasectomy 2007 nasal surgery 07/2017
== END 2024-11-11 09:52 | disposition home or self-care (01) ==
LOC: HO.HMGAL 09:50
PROVIDERS: PCP Internal Medicine; Visit Provider Registered Nurse Emergency
DX: J30.89 Other allergic rhinitis (principal)
CPT/HCPCS: 95117; 95165

== ENCOUNTER 2024-12-07 10:03 | Outpatient (AMB) | payer MEDICARE, SELFPAY ==
--- OUTSIDE RECORDS SUMMARY | 2024-05-22 03:00 | XMS_ITS ---
Author Organization Jay Rushing MD Address [address] [place], [place] [id number] Care Team Providers Care Metal Wire Coating Operator Name Role Phone Jay Rushing Primary Care Provider Results Component Value Reference Range Notes Complete Blood Count Auto Di ff Reviewed date:05/22/2024 12:33:12 PM Interpretation: Performing Lab:[facility], [address] [place] [phone] Notes/Report: White Blood Count 5.5 4.8-10.8 X10*3/uL [...] NRBC Abs Auto 0.000 0.0-0.012 X10*3/uL Comprehensive [place]. Panel Fa st Reviewed date:05/22/2024 12:08:10 PM Interpretation: Performing Lab:[address] [phone] Notes/Report: Sodium 140 135-145 mmol/L Potassium 3.9 [...] Panel Reviewed date:05/22/2024 12:09:13 PM Interpretation: Performing Lab:[address] [phone] Notes/Report: Triglycerides 111 <150 mg/dL Desirable Triglyceride: [...] (Free>4and<10) Reviewed date:05/22/2024 12:08:41 PM Interpretation: Performing Lab:[address] [phone] Notes/Report: PSA,Total (Free>4and<10) 0.56 0.00-4.00 ng/mL A [...] Random Reviewed date:05/22/2024 12:46:04 PM Interpretation: Performing Lab:[address] [phone] Notes/Report: Creatinine Urine 44.27 Microalbumin Urine < 5.0 Microalbum/Creatinine Ratio Ur TNP <30 ug/mg cr Unable to calculate albumin/creatinine ratio due to low microalbumin or creatinine result. Hemoglobin A1c Reviewed date:05/22/2024 12:08:19 PM Interpretation: Performing Lab:[address] [phone] Notes/Report: Hemoglobin A1c % 5.2 <6.0 % [...] average glucose, using the formula of the D3J-Dkdestt Average Glucose study (ADAG), Diabetes Care, Vol.31,#8, Oct. 2007 UA ClnCatch+Micro w/rflx Cul t Reviewed date:05/22/2024 12:34:09 PM Interpretation: Performing Lab:[facility], [address] [place] [phone] Notes/Report: Urine, Clean Catch Color Urine Yellow Appearance Urine Clear PH 6.5 5.0-9.0 Glucose Urine UA Negative Negative mg/dL Urine Blood Negative Negative Specific [place] - Urine 1.010 1.005-1.025 Urine Protein Negative [...] Location Date Provider Diagnosis Jay Rushing MD [address] [place] [address] [place] [phone] 05/22/2024 Jay Rushing Blood tests for routine general physical examination Z00.00 and Prediabetes R73.09 Assessments Encounter Date Diagnosis (ICD Code) Assessment Notes Treatment Notes Treatment Clinical Notes Section Notes 05/22/2024 Blood tests for routine general physical examination (ICD-10 - Z00.00) 05/22/2024 Prediabetes (ICD-10 - R73.09) Plan Of Treatment Next Appt Details Provider Name:Jay romero, 05/28/2025 07:00:00 AM, [address] [place] [address], [address] [place] [address], [phone], Provider Name:Jay romero, 06/04/2025 08:30:00 AM, [address] [place] [address], Suite [facility], [place], [place], [phone], Progress Notes * David FORBES FDOB:1955 (69 yo M)Acc No.[id number]:05/22/2024 Progress Note Patient: David ALMEIDA Provider: Dami Rushing MD :1955 A ge:69 Y S ex:Male Date:05/22/2024 Address:[address] [place] [address], [id number] Subjective: * Chief Complaints: * 1 . Yearly fasting labs. * Medical History: Objective: * Vitals: Assessment: * Assessment: 1. B lood tests for routine general physical examination - Z00.00 (Primary) 2 .?Prediabetes - R73.09 Plan: * Treatment: 2. P rediabetes L AB: Complete Blood Count Auto Diff (Collection Date & Time - 05/22/2024 07:00 AM) L AB: Comprehensive [place]. Panel Fast (Collection Date & Time - [...] Rushing MD Date: 0 05/22/2024 Generated for Sridhari ng/Faxing/eTransmitting on: 0 12/07/2024 12:17 PM EDT
--- OUTSIDE RECORDS SUMMARY | 2024-05-29 04:30 | XMS_ITS ---
Author Organization Jay Rushing MD Address [address] [place] [id number] Care Team Providers Care Gas Reverser Name Role Phone Jay Rushing Primary Care [...] Location Date Provider Diagnosis Jay Rushing MD [address] [place] [address] [place] [phone] 05/29/2024 Jay Rushing Prediabetes R73.09 ; Annual [...] Reason: Provider Name:Jay romero, 05/28/2025 07:00:00 AM, [address] [place] [address], Suite [facility], [place], [place], [phone], Provider Name:Jay romero, 06/04/2025 08:30:00 AM, [address] [place] [address], Suite [facility], [place], [place], [phone], Progress Notes * David FORBES FDOB:1955 (69 yo M)Acc No.[id number]:05/29/2024 Progress Notes Patient: David ALMEIDA Provider: Dami Rushing MD :1955 A ge:69 Y S ex:Male Date:05/29/2024 Address:[address] [place], [place] [address], [id number] Subjective: * Chief Complaints: * A nnual [...] mg/dL Urine Blood Negative Negative - Specific [place] - Urine 1.010 1.005-1.025 - Urine Protein [...] Auto 0.000 0.0-0.012 - X10*3/uL L ab:Comprehensive [place]. Panel Fast (Order Date - 05/22/2024) (Collection [...] 0 05/29/2024 Generated for Cierra marshall/Mika/Rod on: 0 12/07/2024 12:19 PM EDT History and Physical Notes * HPI (History [...]
--- OUTSIDE RECORDS SUMMARY | 2024-06-01 09:13 | XMS_ITS ---
Author Organization Jay Rushing MD Address [address] [place] [phone] Care Team Providers Care Cook Chief Name Role Phone Jay Rushing Primary Care Provider Results Component Value Reference Range Notes Occult Blood, Stool, Guaiac Reviewed date:07/30/2024 01:57:24 PM Interpretation:Negative Performing Lab: Notes/Report: Negative Occult Blood, Stool, Guaiac Neg x 2 REASON FOR VISIT stool cards Encounters Encounter Location Date Provider Diagnosis Jay Rushing MD [address] [place] [address] [place] [phone] 06/01/2024 Jay Rushing Colon cancer screening Z12.11 Assessments Encounter Date Diagnosis (ICD Code) Assessment Notes Treatment Notes Treatment Clinical Notes Section Notes 06/01/2024 Colon cancer screening (ICD-10 - Z12.11) Plan Of Treatment Next Appt Details Provider Name:Jay romero, 05/28/2025 07:00:00 AM, [address] [place] [address], [address], [phone], Provider Name:Jay romero, 06/04/2025 08:30:00 AM, [address] [place] [address], [address], [phone], Progress Notes * David FORBES FDOB:1955 (69 yo M)Acc No.[id number]:06/01/2024 Patient: Hilario GIANFRANCO David Javier :1955 A ge:69 Y S ex:Male Address:[address] [place] [address], [place] [address] Subjective: * Chief Complaints: * S tool cards * Medical History: * Surgical History: * Hospitalization/Major Diagno stic Procedure: * Medications: Objective: * Vitals: * Physical Examination: Assessment: * Assessment: 1. C [facility] cancer screening - Z12.11 (Primary) Plan: * Treatment: Value Reference Range O ccult Blood, Stool, Guaiac Neg x 2 * Procedure Codes: 8 2270 TEST FOR BLOOD, FECES * true * Date: Generated for Cierra marshall/Mika/eTdanasmitting on: 0 12/07/2024 12:19 PM EDT
--- OUTSIDE RECORDS SUMMARY | 2024-12-07 12:18 | XMS_ITS | Patient Health Record ---
Author Organization [facility] Address [address] [place] [address] Care Team Providers Care Clinical Documentation Manager Name Role Phone Jay Rushing MD Primary Care Provider Henrique Hidalgo Unavailable [phone] Allergies Allergen (clinical drug ingredient) Drug/Non Drug [...] Problem Status W/U Status Risk Notes Problem 579936355 Encounter for screening for malignant neoplasm of colon (Z12.11) Active confirmed Problem Screening for malignant neoplasm of rectum (494040159) Encounter for screening for malignant neoplasm of rectum (Z12.12) Active confirmed Problem 33283429 Preprocedural examination (Z01.818) Active confirmed Problem 232462052 Family history o f colon cancer (Z80.0) Active confirmed Problem Diverticulosis of sigmoid colon (825923067) Diverticulosis of sigmoid colon (K57.30) Active confirmed Problem 872744783 Family history o f colon cancer in father (Z80.0) Active confirmed Plan Of Treatment Future Test Test Name Order Date COLONOSCOPY 07/26/2015 COLONOSCOPY 08/23/2020 Insurance Providers Payer Name Payer Address Payer Phone Subscriber Number Group Number Insured Name Patient Relationship to Insured Coverage Start Date Coverage End Date Aetna (No Referra l) [address] [address] [place] [address] [id number] OCHOA FORBES Self - patient is the insured Medical (General) History Medical History History ICD Code Colonoscopy in 2004 and on ---diverticulosis and inrternal hemorrhoids Denies PR,DM,CVA,Lung disease,renal dise ase Seasonal allergies Negative colonoscopy in 10/2015 Surgical History Surgery Date(Month/Year) Right inguinal hernia surgery Vasectomy Left hernia repair Nasal polyp/deviated septum
--- OUTSIDE RECORDS SUMMARY | 2024-12-07 12:19 | XMS_ITS | Patient Health Record ---
Author Organization Jay Rushing MD Address [address] [place], [place] [phone] Care Team Providers Care Law Tutor Name Role Phone Jay Rushing Primary Care Provider [phone] Allergies Allergen (clinical drug ingredient) Drug/Non Drug Allergy documented on EMR Reaction Allergy Type Onset Date Status Vaccine product containing Influenza virus antigen (medicinal product) Flu Vac (uncoded) anaphylaxis Allergy Act manjula Results Component Value Reference Range Notes Complete Blood Count Auto Di ff Reviewed date:05/22/2024 12:33:12 PM Interpretation: Performing Lab:[facility], [address] [place] [phone] Notes/Report: White Blood Count 5.5 4.8-10.8 X10*3/uL [...] NRBC Abs Auto 0.000 0.0-0.012 X10*3/uL Comprehensive [place]. Panel Fa Reviewed date:05/22/2024 12:08:10 PM Interpretation: Performing Lab:[facility], [address] [place] [phone] Notes/Report: Sodium 140 135-145 mmol/L Potassium 3.9 [...] Panel Reviewed date:05/22/2024 12:09:13 PM Interpretation: Performing Lab:[facility], [address] [place] [phone] Notes/Report: Triglycerides 111 <150 mg/dL Desirable Triglyceride: [...] (Free>4and<10) Reviewed date:05/22/2024 12:08:41 PM Interpretation: Performing Lab:[address] [phone] Notes/Report: PSA,Total (Free>4and<10) 0.56 0.00-4.00 ng/mL A [...] Random Reviewed date:05/22/2024 12:46:04 PM Interpretation: Performing Lab:[address] [phone] Notes/Report: Creatinine Urine 44.27 Microalbumin Urine < 5.0 Microalbum/Creatinine Ratio Ur TNP <30 ug/mg cr Unable to calculate albumin/creatinine ratio due to low microalbumin or creatinine result. Hemoglobin A1c Reviewed date:05/22/2024 12:08:19 PM Interpretation: Performing Lab:[address] [address] Notes/Report: Hemoglobin A1c % 5.2 <6.0 % [...] average glucose, using the formula of the [id number]-Hvvkpuj Average Glucose study (ADAG), Diabetes Care, Vol.31,#8, Oct. 2007 UA ClnCatch+Micro w/rflx Cul t Reviewed date:05/22/2024 12:34:09 PM Interpretation: Performing Lab:[facility], [address] [place] [phone] Notes/Report: Urine, Clean Catch Color Urine Yellow Appearance Urine Clear PH 6.5 5.0-9.0 Glucose Urine UA Negative Negative mg/dL Urine Blood Negative Negative Specific [place] - Urine 1.010 1.005-1.025 Urine Protein Negative [...] Localized osteoarthrosis uncertain if primary OR secondary (51917350) Localized osteoarthrosis not specified whether primary or secondary, hand (715.34) Active confirmed Problem Acid reflux (133729444) Acid reflux (K21.9) Active confirmed Problem 1558817 Prediabetes (R73.09) Active confirmed Problem 268769730 Schatzki's ring (K22.2) Active confirmed Problem 363965914 Family history o f colon cancer (Z80.0) Active confirmed Problem 8184434537025 Bilateral nonpulsatile tinnitus (H93.13) Active confirmed Vital Signs Blood pressure diastolic 70 mm Hg 05/29/2024 Height 69 in 05/29/2024 Blood pressure systolic 122 mm Hg 05/29/2024 Weight 162 lbs 05/29/2024 BMI 23.92 kg/m2 05/29/2024 Encounters Encounter Location Date Provider Diagnosis Jay Rushing MD [address] [place] [address] [address] [place], [place] [phone] 05/22/2024 Jay Rushing Blood tests for routine general physical examination Z00.00 and Prediabetes R73.09 Jay Rushing MD [address] [place] [address] Drive [address] [place] [id number] 05/29/2024 Jay Rushing Prediabetes R73.09 ; Annual physical exam Z00.00 ; Acid reflux K21.9 ; Colon cancer screening Z12.11 and Depression screening Z13.31 Jay Rushing MD [address] [place] [address] Drive [address] [place] [id number] 06/01/2024 Jay Rushing Colon cancer screening Z12.11 [...] Provider Name:Jay romero, 05/28/2025 07:00:00 AM, [address] [place] [address], [place] [address], [place], [place], [phone], Provider Name:Jay romero, 06/04/2025 08:30:00 AM, [address] [place] [address], [place] [address], [place], [place], [phone], Insurance Providers Payer Name Payer Address Payer Phone Subscriber Number Group Number Insured Name Patient Relationship to Insured Coverage Start Date Coverage End Date AETNA MEDICARE ADVANTAGE [address] [place] [id number] David Griffith Self - patient is the insured Medical (General) History Medical History History ICD Code colonoscopy - 12/18/10; colon oscopy done 11/03/15 w/Dr. Henson - repeat 5 yrs due to family hx of colon cancer colonoscopy 10/05, repeat 5 yrs
--- OUTSIDE RECORDS SUMMARY | 2024-12-07 12:19 | XMS_ITS | Patient Health Record ---
Author Organization [facility] Address [address] [place] [address] Care Team Providers Care Music Therapy Specialist Name Role Phone Jay Rushing MD Primary Care Provider Cyndee Garcia Unavailable [phone] Allergies Allergen (clinical drug ingredient) Drug/Non Drug [...] W/U Status Risk Notes Problem Plantar wart (49533536) Plantar wart (B07.0) Active confirmed Plan Of Treatment No Information Insurance Providers Payer Name Payer Address Payer Phone Subscriber Number Group Number Insured Name Patient Relationship to Insured Coverage Start Date Coverage End Date Aetna Choice POS [address] [address] [place] [phone] [id number] David Griffith Self - patient is the insured Medical (General) History Medical History History ICD Code Hiatal hernia Measles Mumps Chicken pox Surgical History Surgery Date(Month/Year) hernia 1996 vasectomy 2007 nasal surgery 07/2017
--- OUTSIDE RECORDS SUMMARY | 2024-12-07 12:19 | XMS_ITS | Clinical Summary ---
Author Organization [facility] Facility Address [address] [place] [address] Care Team Providers Care Histotechnician Name Role Phone Jay Rushing MD Primary [...] Insurance Aet Commercial Aetna Commercial Care Teams Histotechnician Relationship Specialty Start Date End Date Jay Rushing MD [address] [place], [place] PCP - General Internal Medicine 08/19/20
== END 2024-12-07 10:22 | disposition home or self-care (01) ==
LOC: HO.HMGAL 10:03
PROVIDERS: PCP Internal Medicine; Visit Provider Registered Nurse Emergency
DX: J30.89 Other allergic rhinitis (principal)
CPT/HCPCS: 95117; 95165

== ENCOUNTER 2025-01-11 10:08 | Outpatient (AMB) | payer MEDICARE, SELFPAY ==
--- OUTSIDE RECORDS SUMMARY | 2024-05-22 03:00 | XMS_ITS ---
Author Organization Jay Rushing MD Address [address] [place], [place] [id number] Care Team Providers Care Drill Operator Pneumatic Name Role Phone Jay Rushing Primary Care Provider Results Component Value Reference Range Notes Complete Blood Count Auto Di ff Reviewed date:05/22/2024 12:33:12 PM Interpretation: Performing Lab:[facility], [address] [place] [phone] Notes/Report: White Blood Count 5.5 4.8-10.8 X10*3/uL [...] NRBC Abs Auto 0.000 0.0-0.012 X10*3/uL Comprehensive Stur[place]. Panel Fa st Reviewed date:05/22/2024 12:08:10 PM Interpretation: Performing Lab:[address] [phone] Notes/Report: Sodium 140 135-145 mmol/L Potassium 3.9 [...] Panel Reviewed date:05/22/2024 12:09:13 PM Interpretation: Performing Lab:[address] [phone] Notes/Report: Triglycerides 111 <150 mg/dL Desirable Triglyceride: [...] (Free>4and<10) Reviewed date:05/22/2024 12:08:41 PM Interpretation: Performing Lab:[address] [phone] Notes/Report: PSA,Total (Free>4and<10) 0.56 0.00-4.00 ng/mL A [...] Random Reviewed date:05/22/2024 12:46:04 PM Interpretation: Performing Lab:[address] [phone] Notes/Report: Creatinine Urine 44.27 Microalbumin Urine < 5.0 Microalbum/Creatinine Ratio Ur TNP <30 ug/mg cr Unable to calculate albumin/creatinine ratio due to low microalbumin or creatinine result. Hemoglobin A1c Reviewed date:05/22/2024 12:08:19 PM Interpretation: Performing Lab:[address] [address] Notes/Report: Hemoglobin A1c % 5.2 <6.0 % [...] average glucose, using the formula of the A9H-Dkigvzl Average Glucose study (ADAG), Diabetes Care, Vol.31,#8, Oct. 2007 UA ClnCatch+Micro w/rflx Cul t Reviewed date:05/22/2024 12:34:09 PM Interpretation: Performing Lab:[facility], [address] [place] [phone] Notes/Report: Urine, Clean Catch Color Urine Yellow Appearance Urine Clear PH 6.5 5.0-9.0 Glucose Urine UA Negative Negative mg/dL Urine Blood Negative Negative Specific Guys - Urine 1.010 1.005-1.025 Urine Protein Negative [...] Location Date Provider Diagnosis Jay Rushing MD [address] [place] [address] [place] [phone] 05/22/2024 Jay Rushing Blood tests for routine general physical examination Z00.00 and Prediabetes R73.09 Assessments Encounter Date Diagnosis (ICD Code) Assessment Notes Treatment Notes Treatment Clinical Notes Section Notes 05/22/2024 Blood tests for routine general physical examination (ICD-10 - Z00.00) 05/22/2024 Prediabetes (ICD-10 - R73.09) Plan Of Treatment Next Appt Details Provider Name:Jay romero, 05/28/2025 07:00:00 AM, [address] [place] [address], [address] [place] [address], [phone], Provider Name:Jay romero, 06/04/2025 08:30:00 AM, [address] [place] [address], Suite [facility], [place], [place], [phone], Progress Notes * David FORBES FDOB:1955 (69 yo M)Acc No.[id number]:05/22/2024 Progress Note Patient: David ALMEIDA Provider: Dami Rushing MD :1955 A ge:69 Y S ex:Male Date:05/22/2024 Address:[address] [place] [address], [id number] Subjective: * Chief Complaints: * 1 . Yearly fasting labs. * Medical History: Objective: * Vitals: Assessment: * Assessment: 1. B lood tests for routine general physical examination - Z00.00 (Primary) 2 .?Prediabetes - R73.09 Plan: * Treatment: 2. P rediabetes L AB: Complete Blood Count Auto Diff (Collection Date & Time - 05/22/2024 07:00 AM) L AB: Comprehensive Stur[place]. Panel Fast (Collection Date & Time - [...] 0 05/22/2024 Generated for Sridhari ng/Faxing/eTransmitting on: 1 12:09 PM EDT
--- OUTSIDE RECORDS SUMMARY | 2024-05-29 04:30 | XMS_ITS ---
Author Organization Jay Rushing MD Address [address] [place] [phone] Care Team Providers Care House Fellow Name Role Phone Jay Rushing Primary Care [...] Location Date Provider Diagnosis Jay Rushing MD [address] [place] [address] [place] [phone] 05/29/2024 Jay Rushing Prediabetes R73.09 ; Annual [...] Reason: Provider Name:Jay romero, 05/28/2025 07:00:00 AM, [address] [place] [address], Suite [facility], [place], [place], [phone], Provider Name:Jay romero, 06/04/2025 08:30:00 AM, [address] [place] [address], Suite [facility], [place], [place], [phone], Progress Notes * David FORBES FDOB:1955 (69 yo M)Acc No.[id number]:05/29/2024 Progress Notes Patient: David ALMEIDA Provider: Dami Rushing MD :1955 A ge:69 Y S ex:Male Date:05/29/2024 Address:[address] [place], [place] [address], [place] Subjective: * Chief Complaints: * A nnual [...] mg/dL Urine Blood Negative Negative - Specific [place] - Urine 1.010 1.005-1.025 - Urine Protein [...] Auto 0.000 0.0-0.012 - X10*3/uL L ab:Comprehensive [place]. Panel Fast (Order Date - 05/22/2024) (Collection [...] 05/29/2024 Generated for Cierra marshall/Mika/Rod on: 1 12:10 PM EDT History and Physical Notes * [...]
--- OUTSIDE RECORDS SUMMARY | 2024-06-01 09:13 | XMS_ITS ---
Author Organization Jay Rushing MD Address [address] [place] [phone] Care Team Providers Care Pipe Cleaning Machine Operator Name Role Phone Jay Rushing Primary Care Provider [phone] Results Component Value Reference Range Notes Occult Blood, Stool, Guaiac Reviewed date:07/30/2024 01:57:24 PM Interpretation:Negative Performing Lab: Notes/Report: Negative Occult Blood, Stool, Guaiac Neg x 2 REASON FOR VISIT stool cards Encounters Encounter Location Date Provider Diagnosis Jay Rushing MD [address] [place] [address] [place] [phone] 06/01/2024 Jay Rushing Colon cancer screening Z12.11 Assessments Encounter Date Diagnosis (ICD Code) Assessment Notes Treatment Notes Treatment Clinical Notes Section Notes 06/01/2024 Colon cancer screening (ICD-10 - Z12.11) Plan Of Treatment Next Appt Details Provider Name:Jay romero, 05/28/2025 07:00:00 AM, [address] [place] [address], [address], [phone], Provider Name:Jay romero, 06/04/2025 08:30:00 AM, [address] [place] [address], [address], [phone], Progress Notes * David FORBES FDOB:1955 (69 yo M)Acc No.[id number]:06/01/2024 Patient: Hilario GIANFRANCO David Javier :1955 A ge:69 Y S ex:Male Address:[address] [place] [address], [place] [address] Subjective: * Chief Complaints: * S tool cards * Medical History: * Surgical History: * Hospitalization/Major Diagno stic Procedure: * Medications: Objective: * Vitals: * Physical Examination: Assessment: * Assessment: 1. C [facility] cancer screening - Z12.11 (Primary) Plan: * Treatment: Value Reference Range O ccult Blood, Stool, Guaiac Neg x 2 * Procedure Codes: 8 2270 TEST FOR BLOOD, FECES * true * Date: Generated for Cierra marshall/Mika/eTransmitting on: 12:09 PM EDT
--- OUTSIDE RECORDS SUMMARY | 2025-01-11 12:09 | XMS_ITS | Patient Health Record ---
Author Organization [facility] Address [address] [place] [address] Care Team Providers Care Foreign Exchange Dealer Name Role Phone Jay Rushing MD Primary Care Provider Cyndee Garcia Unavailable [phone] Allergies Allergen (clinical drug ingredient) Drug/Non Drug [...] W/U Status Risk Notes Problem Plantar wart (21623657) Plantar wart (B07.0) Active confirmed Plan Of Treatment No Information Insurance Providers Payer Name Payer Address Payer Phone Subscriber Number Group Number Insured Name Patient Relationship to Insured Coverage Start Date Coverage End Date Aetna Choice POS [address] [address] [place] [phone] [id number] David Griffith Self - patient is the insured Medical (General) History Medical History History ICD Code Hiatal hernia Measles Mumps Chicken pox Surgical History Surgery Date(Month/Year) hernia 1996 vasectomy 2007 nasal surgery 07/2017
--- OUTSIDE RECORDS SUMMARY | 2025-01-11 12:10 | XMS_ITS | Patient Health Record ---
Author Organization Jay Rushing MD Address [address] [place], [place] [id number] Care Team Providers Care Senior Validation Engineer Name Role Phone Jay Rushing Primary Care Provider [phone] Allergies Allergen (clinical drug ingredient) Drug/Non Drug Allergy documented on EMR Reaction Allergy Type Onset Date Status Vaccine product containing Influenza virus antigen (medicinal product) Flu Vac (uncoded) anaphylaxis Allergy Act manjula Results Component Value Reference Range Notes Complete Blood Count Auto Di ff Reviewed date:05/22/2024 12:33:12 PM Interpretation: Performing Lab:[facility], [address] [place] [phone] Notes/Report: White Blood Count 5.5 4.8-10.8 X10*3/uL [...] NRBC Abs Auto 0.000 0.0-0.012 X10*3/uL Comprehensive [place]. Panel Fa Reviewed date:05/22/2024 12:08:10 PM Interpretation: Performing Lab:[facility], [address] [place] [phone] Notes/Report: Sodium 140 135-145 mmol/L Potassium 3.9 [...] Panel Reviewed date:05/22/2024 12:09:13 PM Interpretation: Performing Lab:[facility], [address] [place] [phone] Notes/Report: Triglycerides 111 <150 mg/dL Desirable Triglyceride: [...] (Free>4and<10) Reviewed date:05/22/2024 12:08:41 PM Interpretation: Performing Lab:[address] [phone] Notes/Report: PSA,Total (Free>4and<10) 0.56 0.00-4.00 ng/mL A [...] Random Reviewed date:05/22/2024 12:46:04 PM Interpretation: Performing Lab:[address] [phone] Notes/Report: Creatinine Urine 44.27 Microalbumin Urine < 5.0 Microalbum/Creatinine Ratio Ur TNP <30 ug/mg cr Unable to calculate albumin/creatinine ratio due to low microalbumin or creatinine result. Hemoglobin A1c Reviewed date:05/22/2024 12:08:19 PM Interpretation: Performing Lab:[address] [phone] Notes/Report: Hemoglobin A1c % 5.2 <6.0 % [...] average glucose, using the formula of the L5V-Fcqqdli Average Glucose study (ADAG), Diabetes Care, Vol.31,#8, Oct. 2007 UA ClnCatch+Micro w/rflx Cul t Reviewed date:05/22/2024 12:34:09 PM Interpretation: Performing Lab:[facility], [address] [place] [phone] Notes/Report: Urine, Clean Catch Color Urine Yellow Appearance Urine Clear PH 6.5 5.0-9.0 Glucose Urine UA Negative Negative mg/dL Urine Blood Negative Negative Specific [place] - Urine 1.010 1.005-1.025 Urine Protein [...] Localized osteoarthrosis uncertain if primary OR secondary (42761006) Localized osteoarthrosis not specified whether primary or secondary, hand (715.34) Active confirmed Problem Acid reflux (107209342) Acid reflux (K21.9) Active confirmed Problem 4327094 Prediabetes (R73.09) Active confirmed Problem 229993797 Schatzki's ring (K22.2) Active confirmed Problem 128714743 Family history o f colon cancer (Z80.0) Active confirmed Problem 8346726426940 Bilateral nonpulsatile tinnitus (H93.13) Active confirmed Vital Signs Blood pressure diastolic 70 mm Hg 05/29/2024 Height 69 in 05/29/2024 Blood pressure systolic 122 mm Hg 05/29/2024 Weight 162 lbs 05/29/2024 BMI 23.92 kg/m2 05/29/2024 Encounters Encounter Location Date Provider Diagnosis Jay Rushing MD [address] [place] [address] [address] [place], [place] [phone] 05/22/2024 Jay Rushing Blood tests for routine general physical examination Z00.00 and Prediabetes R73.09 Jay Rushing MD [address] [place] [address] Drive [address] [place] [id number] 05/29/2024 Jay Rushing Prediabetes R73.09 ; Annual physical exam Z00.00 ; Acid reflux K21.9 ; Colon cancer screening Z12.11 and Depression screening Z13.31 Jay Rushing MD [address] [place] [address] Drive [address] [place] [id number] 06/01/2024 Jay Rushing Colon cancer screening Z12.11 [...] Details Provider Name:Jay romero, 05/28/2025 07:00:00 AM, [address] [place] [address], [place] [address], [place], [place], [phone], Provider Name:Jay romero, 06/04/2025 08:30:00 AM, [address] [place] [address], [place] [address], [place], [place], [phone], Insurance Providers Payer Name Payer Address Payer Phone Subscriber Number Group Number Insured Name Patient Relationship to Insured Coverage Start Date Coverage End Date AETNA MEDICARE ADVANTAGE [address] CHELO CALDERA [id number] David Griffith Self - patient is the insured Medical (General) History Medical History History ICD Code colonoscopy - 12/18/10; colon oscopy done 11/03/15 w/Dr. Henson - repeat 5 yrs due to family hx of colon cancer colonoscopy 10/05, repeat 5 yrs
--- OUTSIDE RECORDS SUMMARY | 2025-01-11 12:10 | XMS_ITS | Patient Health Record ---
Author Organization [facility] Address [address] [place] [address] Care Team Providers Care Shoulder Pad Molder Name Role Phone Jay Rushing MD Primary Care Provider Henrique Hidalgo Unavailable [phone] Allergies Allergen (clinical drug ingredient) Drug/Non Drug [...] Problem Status W/U Status Risk Notes Problem Screening for malignant neoplasm of colon (322676578) Encounter for screening for malignant neoplasm of colon (Z12.11) Active confirmed Problem Screening for malignant neoplasm of rectum (587159857) Encounter for screening for malignant neoplasm of rectum (Z12.12) Active confirmed Problem Preprocedural examination (601558798471880) Preprocedural examination (Z01.818) Active confirmed Problem Family History of Cancer of Colon (Situation) (140876633) Family history of colon cancer (Z80.0) Active confirmed Problem Diverticulosis of sigmoid colon (752927134) Diverticulosis of sigmoid colon (K57.30) Active confirmed Problem Family history of malignant neoplasm of gastrointestinal tract (983605599) Family history of colon cancer in father (Z80.0) Active confirmed Plan Of Treatment Future Test Test Name Order Date COLONOSCOPY 07/26/2015 COLONOSCOPY 08/23/2020 Insurance Providers Payer Name Payer Address Payer Phone Subscriber Number Group Number Insured Name Patient Relationship to Insured Coverage Start Date Coverage End Date Aetna (No Referra l) [address] [address] [place] [address] [id number] OCHOA FORBES Self - patient is the insured Medical (General) History Medical History History ICD Code Colonoscopy in 2004 and on ---diverticulosis and inrternal hemorrhoids Denies [place],DM,CVA,Lung disease,renal dise ase Seasonal allergies Negative colonoscopy in 10/2015 Surgical History Surgery Date(Month/Year) Right inguinal hernia surgery Vasectomy Left hernia repair Nasal polyp/deviated septum
== END 2025-01-11 10:09 | disposition home or self-care (01) ==
LOC: HO.HMGAL 10:08
PROVIDERS: PCP Internal Medicine; Visit Provider Registered Nurse Emergency
DX: J30.89 Other allergic rhinitis (principal)
CPT/HCPCS: 95117; 95165

== ENCOUNTER 2025-02-08 10:17 | Outpatient (AMB) | payer MEDICARE, SELFPAY ==
--- OUTSIDE RECORDS SUMMARY | 2025-02-08 12:36 | XMS_ITS | Clinical Summary ---
Author Organization [facility] Facility Address [address] [place] [address] Care Team Providers Care Sheet Metal Duct Installer Apprentice Name Role Phone Jay Rushing MD Primary [...] Years Used Date Smoking Tobacco: Former Cigarettes 0 Q uit: 2010 Smokeless Tobacco: Never Alcohol [...] Insurance Aet Commercial Aetna Commercial Care Teams Sheet Metal Duct Installer Apprentice Relationship Specialty Start Date End Date Jay Rushing MD [address] [place], [place] PCP - General Internal Medicine 08/19/20
== END 2025-02-08 10:18 | disposition home or self-care (01) ==
LOC: HO.HMGAL 10:17
PROVIDERS: PCP Internal Medicine; Visit Provider Registered Nurse Emergency
DX: J30.89 Other allergic rhinitis (principal)
CPT/HCPCS: 95117; 95165

== ENCOUNTER 2025-03-08 11:01 | Outpatient (AMB) | payer MEDICARE, SELFPAY ==
--- OUTSIDE RECORDS SUMMARY | 2024-05-22 02:00 | XMS_ITS ---
Author Organization Jay Rushing MD Address [address] [place], [place] [id number] Care Team Providers Care Med Surg Nurse Name Role Phone Jay Rushing Primary Care Provider Results Component Value Reference Range Notes Complete Blood Count Auto Di ff Reviewed date:05/22/2024 12:33:12 PM Interpretation: Performing Lab:[facility], [address] [place] [phone] Notes/Report: White Blood Count 5.5 4.8-10.8 X10*3/uL Red Blood Count 5.16 4.60-5.80 X10*6/uL Hemoglobin 15.7 14.0-18.0 g/dl Hematocrit 45.6 42.0-52.0 % Mean Corpuscular Volume 88.4 80.0-98.0 fL Mean Corpuscular Hemoglobin 30.4 27.0-33.0 pg Mean Corpuscular HGB Conc 34.4 31.0-36.0 g/dl Red Cell Distribution Width 12.3 11.0-16.0 % Platelet Count 255 160-400 X10*3/uL Mean Platelet Volume 10.3 9.4-12.4 fL Neutrophils Percent Auto 48.3 45-73 % Imm Gran Pct Auto 0.2 0.0-0.4 % Lymphocytes Percent Auto 32.9 20-40 % Monocytes Percent Auto 10.5 2-11 % Eosinophils Percent Auto 7.4 0-4 % Basophils Percent Auto 0.7 0-2 % NRBC Pct Auto 0.0 0.0-0.2 /100WBC Neutrophils Absolute Auto 2.7 2.0-8.3 x10*3/u L Imm Gran Abs Auto 0.01 0.00-0.03 X10*3/uL Lymphocytes Absolute Auto 1.8 1.2-4.9 X10*3/u L Monocytes Absolute Auto 0.6 0.1-1.2 X10*3/uL Eosinophils Absolute Auto 0.4 0.0-0.4 X10*3/u L Basophils Absolute Auto 0.0 0.0-0.2 X10*3/uL NRBC Abs Auto 0.000 0.0-0.012 X10*3/uL Comprehensive [place]. Panel Fa st Reviewed date:05/22/2024 12:08:10 PM Interpretation: Performing Lab:[address] [phone] Notes/Report: Sodium 140 135-145 mmol/L Potassium 3.9 3.3-5.1 mmol/L Chloride 105 96-108 mmol/L Carbon Dioxide 26 22-29 mmol/L Anion Gap 13 12-20 Blood Urea Nitrogen 31 9-16 mg/dL Creatinine 0.95 0.5-1.4 mg/dL Estimated Glomerular Filt Rate > 60 Chronic Kidney Disease: Estimated GFR < 60 mL/min/1.73m2 Severe Kidney Disease: Estimated GFR < 15 mL/min/1.73m2 Glucose Fasting 86 60-99 mg/dL Calcium 9.3 8.4-10.2 mg/dL Bilirubin Total 0.6 0.0-1.0 mg/dL Aspartate Amino Transferase 31 5-37 U/L Alanine Aminotransferase 36 0-40 U/L Total Protein 7.1 6.5-8.0 g/dL Albumin Level 4.4 3.5-5.0 g/dL Alkaline Phosphatase 44 39-117 U/L Lipid Panel Reviewed date:05/22/2024 12:09:13 PM Interpretation: Performing Lab:[address] [phone] Notes/Report: Triglycerides 111 <150 mg/dL Desirable Triglyceride: less than 150 mg/dL Borderline High Triglyceride 150-199 mg/dL High Triglyceride: 200-499 mg/dL Very High Triglyceride: greater than or equal to 5OO mg/dL Cholesterol 203 <200 mg/dL Desirable Cholesterol: less than 200 mg/dL Borderline High Cholesterol: 200-239 mg/dL High Cholesterol: greater than 239 mg/dL LDL Cholesterol Calculated 109 <100 mg/dL Desirable LDL: less than 100 mg/dL Near Optimal/Above Optimal LDL: 110-129 mg/dL Borderline High LDL: 130-159 mg/dL High LDL: 160-189 mg/dL Very High LDL: greater than or equal to 190 mg/dL HDL Cholesterol 72 >40 mg/dL Desirable HDL: greater than 40 mg/dL Note: This HDL assay may give artificially low results in patients with liver disease. PSA,Total (Free>4and<10) Reviewed date:05/22/2024 12:08:41 PM Interpretation: Performing Lab:[address] [phone] Notes/Report: PSA,Total (Free>4and<10) 0.56 0.00-4.00 ng/mL A Free PSA was not performed: The percentage of Free PSA can be used to enhance the differentiation of prostate cancer from benign prostatic disease in subjects whose PSA levels are between 4.0 and 10.0 ng/mL. For subjects whose PSA levels are below 4.0 or above 10.0 ng/mL, the risk of prostate cancer is determined on the basis of the PSA alone. Therefore the % Free PSA is recommended only for those subjects whose PSA levels are between 4.0 and 10.0 ng/mL. PSA methodology: Myers Alinity i Chemiluminescent Microparticle Immunoassay (CMIA) Microalbumin, Random Reviewed date:05/22/2024 12:46:04 PM Interpretation: Performing Lab:[address] [phone] Notes/Report: Creatinine Urine 44.27 Microalbumin Urine < 5.0 Microalbum/Creatinine Ratio Ur TNP <30 ug/mg cr Unable to calculate albumin/creatinine ratio due to low microalbumin or creatinine result. Hemoglobin A1c Reviewed date:05/22/2024 12:08:19 PM Interpretation: Performing Lab:[address] [phone] Notes/Report: Hemoglobin A1c % 5.2 <6.0 % Hemoglobin A1C Reference Range Adults: 4.8 - 6.0 % Non diabetic: < 6.0 % Goal: < 7.0 % Additional Action Suggested: > 8.0 % Note: Hemoglobin A1c results are invalid for patients with abnormal amounts of HbF. Blood transfusions may impact the HbA1c concentration in the patient sample. Estimated Average Glucose 103 eAG = Estimated average glucose which is %A1C expressed as average glucose, using the formula of the M5R-Urtqhmh Average Glucose study (ADAG), Diabetes Care, Vol.31,#8, Oct. 2007 UA ClnCatch+Micro w/rflx Cul t Reviewed date:05/22/2024 12:34:09 PM Interpretation: Performing Lab:[facility], [address] [place] [phone] Notes/Report: Urine, Clean Catch Color Urine Yellow Appearance Urine Clear PH 6.5 5.0-9.0 Glucose Urine UA Negative Negative mg/dL Urine Blood Negative Negative Specific [place] - Urine 1.010 1.005-1.025 Urine Protein Negative Neg-Trace mg/dL Urine Ketones Negative Negative mg/dL Nitrite Urine Negative Negative Leukocyte Esterase Urine Negative Negative RBC Urine 0-2 0-2 /HPF WBC Urine 0-5 0-5 /HPF Squamous Epithelial Cell Urine 0-2 0-2 /HPF Bacteria Urine None Seen None Seen Hyaline Casts Urine 0-2 0-2 /LPF REASON FOR VISIT yearly fasting labs Encounters Encounter Location Date Provider Diagnosis Jay Rushing MD [address] [place] [address] [place] [phone] 05/22/2024 Jay Rushing Blood tests for routine general physical examination Z00.00 and Prediabetes R73.09 Assessments Encounter Date Diagnosis (ICD Code) Assessment Notes Treatment Notes Treatment Clinical Notes Section Notes 05/22/2024 Blood tests for routine general physical examination (ICD-10 - Z00.00) 05/22/2024 Prediabetes (ICD-10 - R73.09) Plan Of Treatment Next Appt Details Provider Name:Jay romero, 05/28/2025 07:00:00 AM, [address] [place] [address], [address] [place] [address], [phone], Provider Name:Jay romero, 06/04/2025 08:30:00 AM, [address] [place] [address], Suite [facility], [place], [place], [phone], Progress Notes * Davdi FORBES FDOB:1955 (69 yo M)Acc No.[id number]:05/22/2024 Progress Note Patient: David ALMEIDA Provider: Dami Rushing MD :1955 A ge:69 Y S ex:Male Date:05/22/2024 Address:[address] [place] [address], [id number] Subjective: * Chief Complaints: * 1 . Yearly fasting labs. * Medical History: Objective: * Vitals: Assessment: * Assessment: 1. B lood tests for routine general physical examination - Z00.00 (Primary) 2 .?Prediabetes - R73.09 Plan: * Treatment: 2. P rediabetes L AB: Complete Blood Count Auto Diff (Collection Date & Time - 05/22/2024 07:00 AM) L AB: Comprehensive [place]. Panel Fast (Collection Date & Time - 05/22/2024 07:00 AM) L AB: Lipid Panel (Collection Date & Time - 05/22/2024 07:00 AM) L AB: PSA,Total (Free>4and<10) (Collection Date & Time - 05/22/2024 07:00 AM) L AB: Microalbumin, Random (Collection Date & Time - 05/22/2024 07:00 AM) L AB: Hemoglobin A1c (Collection Date & Time - 05/22/2024 07:00 AM) L AB: UA ClnCatch+Micro w/rflx Cult (Collection Date & Time - 05/22/2024 07:00 AM) * Procedure Codes: 3 6415 VENIPUNCT, ROUTINE* * * The named appointment provid er may or may not be the originator of this progress note, and it is not deemed complete until electronically signed by the appointment provider. Sign off status: Pending * Provider: Dami Rushing MD Date: 0 05/22/2024 Generated for Cierra ng/Fanadiyag/eTransmitting on: 1 05/09/2024 01:52 PM EST
--- OUTSIDE RECORDS SUMMARY | 2024-05-29 03:30 | XMS_ITS ---
Author Organization Jay Rushing MD Address [address] [place] [id number] Care Team Providers Care Pet Store Merchandiser Name Role Phone Jay Rushing Primary Care Provider Allergies Allergen (clinical drug ingredient) Drug/Non Drug Allergy documented on EMR Reaction Allergy Type Onset Date Status Vaccine product containing Influenza virus antigen (medicinal product) Flu Vac (uncoded) anaphylaxis Allergy Act manjula Results Component Value Reference Range Notes Occult Blood, Stool, Guaiac Reviewed date:05/29/2024 10:50:16 AM Interpretation:Negative Performing Lab: Notes/Report: Negative Occult Blood, Stool, Guaiac Neg REASON FOR VISIT annual paper work Medications Medication SIG (Take, Route, Frequency, Duration) [...] Interpretation Positive Vital Signs Blood pressure systolic 122 mm Hg 05/30/19 25 Blood pressure diastolic 70 mm Hg 025 Height 69 in 05/29/2024 Weight 162 lbs 05/29/2024 BMI 23.92 kg/m2 05/29/2024 Encounters Encounter Location Date Provider Diagnosis Jay Rushing MD [address] [place] [address] [place] [phone] 05/29/2024 Jay Rushing Prediabetes R73.09 ; Annual physical exam Z00.00 ; Acid reflux K21.9 ; Colon cancer screening Z12.11 and Depression screening Z13.31 Assessments Encounter Date Diagnosis (ICD Code) Assessment Notes Treatment Notes Treatment Clinical Notes Section Notes 05/29/2024 Prediabetes (ICD-10 - R73.09) doing great, no need for medication at this time, will continue to monitor 05/29/2024 Annual physical exam (ICD-10 - Z00.00) labs reviewed and discussed with patient 05/29/2024 Acid reflux (ICD-10 - K21.9) stable, will continue current regiment 05/29/2024 Colon cancer screening (ICD-10 - Z12.11) guaiac negative 05/29/2024 Depression screening (ICD-10 - Z13.31) negative screen Plan Of Treatment Medication Medication Name Sig Start Date Stop Date Notes Esomeprazole Magnesium 40 MG 1 capsule Orally Once a day Treatment Notes Assessment Notes Prediabetes doing great, no need for medication at this time, will continue to monitor Annual physical exam labs reviewed and d iscussed with patient Acid reflux stable, will continu e current regiment Colon cancer screening guaiac negative Depression screening negative screen Next Appt Details Follow Up: 1 Year, Reason: Provider Name:Jay romero, 05/28/2025 07:00:00 AM, [address] [place] [address], Suite [facility], [place], [place], [phone], Provider Name:Jay romero, 06/04/2025 08:30:00 AM, [address] [place] [address], Suite [facility], [place], [place], [phone], Progress Notes * David FORBES FDOB:1955 (69 yo M)Acc No.[id number]:05/29/2024 Progress Notes Patient: David ALMEIDA Provider: Dami Rushing MD :1955 A ge:69 Y S ex:Male Date:05/29/2024 Address:[address] [place], [place] [address], [id number] Subjective: * Chief Complaints: * A nnual paper work * HPI: D epression Screening: PHQ-9 L ittle interest or pleasure in doing things N ot at all, F eeling down, depressed, or hopeless N ot at all, T rouble falling or staying asleep, or sleeping too much N ot at all, F eeling tired or having little energy N ot at all, P oor appetite or overeating N ot at all, F eeling bad about yourself or that you are a failure, or have let yourself or your family down N ot at all, T rouble concentrating on things, such as reading the newspaper or watching television N ot at all, M oving or speaking so slowly that other people could have noticed; or the opposite, being so fidgety or restless that you have been moving around a lot more than usual N ot at all, T houghts that you would be better off or of hurting yourself in some way N ot at all, T otal Score 0 . I nterpretation and Intervention D epression Screening Findings N egative, F ollow-Up for Depression : review of PHQ-9 found negative result, no follow-up needed. C ommunication Needs: Communication Needs D oes the patient have a hearing impairment N o, D oes the patient have a vision impairment? Y es, I f yes, what is the vision impairment? G lasses, D oes the patient have a cognition impairment? N o. F all Risk: History H ave you had any falls with injury in the past year? N o, H ave you had two or more falls in the past year? N o. S COURTNEY Questions: SDOH Questions I n the past year have you been worried about losing housing? N o, I n the past year have you or any family members you live with been unable to get any of the following when it was really needed? Check all that apply: N one. S ymptom(s): patientis a 69 yo male here for annual visit with review of reent labs an follow up of chronic issues. * ROS: G eneral/Constitutional: Change in appetite d enies. C hills d enies. F ever d enies. O phthalmologic: Blurred vision d enies. D ischarge d enies. P ain d enies. E NT: Decreased hearing d enies. S ore throat d enies.?Swollen glands d enies. E ndocrine: Cold intolerance d enies. E xcessive thirst d enies. H eat intolerance d enies. W eight loss d enies. R espiratory: Cough d enies. S hortness of breath at rest d enies. S hortness of breath with exertion d enies. W heezing d enies. C ardiovascular: Chest pain at rest d enies. C hest pain with exertion?denies. I rregular heartbeat d enies. S hortness of breath d enies. ? G astrointestinal: Abdominal pain d enies. C hange in bowel habits d enies. D iarrhea d enies. N ausea d enies. R ectal bleeding d enies. V omiting d enies . G enitourinary: Blood in urine d enies. D ifficulty urinating d enies. F requent urination d enies. M usculoskeletal: Painful joints d enies. W eakness d enies. ? S kin: Dry skin d enies. I tching d enies. D enies?Mole(s), changes in moles, new moles or any lesions of concern. D enies P hotosensitivity. R cedric d enies. N eurologic: Dizziness d enies. F ainting d enies. H eadache?denies. * Medical History: * Surgical History: * Hospitalization/Major Diagno stic Procedure: * Family History: F ather: 82 yrs, family history unknown . M other: 92 yrs. 4 brother(s) . 1 daughter(s) - healthy. . Mother-CVA father-organ failure, Denies mental health/substance abuse family history, No pertinent family medical history, No pertinent family medical history, Denies mental health/substance abuse family history. * Social History: T obacco Use: T obacco Use/Smoking P atient is a f ormer smoker, H ow long has it been since you last smoked? > 10 years, A dditional Findings: Tobacco Non-User F ormer smoker, currently using no form of tobacco. D rugs/Alcohol: A lcohol Screen D id you have a drink containing alcohol in the past year? Y es, H ow often did you have a drink containing alcohol in the past year? 4 or more times a week (4 points), H ow many drinks did you have on a typical day when you were drinking in the past year? 1 or 2 drinks (0 point), H ow often did you have 6 or more drinks on one occasion in the past year? N ever (0 point), P oints 4 , I nterpretation P ositive. M iscellaneous: C affeine: yes, frequency:, 2-3 cups per day. Children: yes. Exercise: yes, walks half hour QD. Home smoke detector use: yes. Living with: significant other. Marital status: single. Occupation: retired. Pets: none. Travel outside of the [place]: no. * Medications: T akingEsomeprazole Magnesium 40 MG Capsule Delayed Release 1 capsule Orally Once a day Medication List reviewed and reconciled with the patientTaking Esomeprazole Magnesium 40 MG Capsule Delayed Release 1 capsule Orally Once a day Medication List reviewed and reconciled with the patient * Allergies: F anoop Vac: anaphylaxisyes[Allergies Verified] Objective: * Vitals: H t: 69, Wt: 162, BMI:23.92, BP:122/70, Wt-k.48. * P ast Orders: L ab:UA ClnCatch+Micro w/rflx Cult (Order Date - 05/22/2024) (Collection Date & Time - 05/22/2024 07:00 AM) Value Reference Range Color Urine Yellow - Appearance Urine Clear - PH 6.5 5.0-9.0 - Glucose Urine UA Negative Negative - mg/dL Urine Blood Negative Negative - Specific [place] - Urine 1.010 1.005-1.025 - Urine Protein Negative Neg-Trace - mg/dL Urine Ketones Negative Negative - mg/dL Nitrite Urine Negative Negative - Leukocyte Esterase Urine Negative Negative - RBC Urine 0-2 0-2 - /HPF WBC Urine 0-5 0-5 - /HPF Squamous Epithelial Cell Urine 0-2 0-2 - /HP F Bacteria Urine None Seen None Seen - Hyaline Casts Urine 0-2 0-2 - /LPF L ab:Complete Blood Count Auto Diff (Order Date - 05/22/2024) (Collection Date & Time - 05/22/2024 07:00 AM) Value Reference Range White Blood Count 5.5 4.8-10.8 - X10*3/uL Red Blood Count 5.16 4.60-5.80 - X10*6/uL Hemoglobin 15.7 14.0-18.0 - g/dl Hematocrit 45.6 42.0-52.0 - % Mean Corpuscular Volume 88.4 80.0-98.0 - fL Mean Corpuscular Hemoglobin 30.4 27.0-33.0 - pg Mean Corpuscular HGB Conc 34.4 31.0-36.0 - g/ dl Red Cell Distribution Width 12.3 11.0-16.0 - % Platelet Count 255 160-400 - X10*3/uL Mean Platelet Volume 10.3 9.4-12.4 - fL Neutrophils Percent Auto 48.3 45-73 - % Imm Gran Pct Auto 0.2 0.0-0.4 - % Lymphocytes Percent Auto 32.9 20-40 - % Monocytes Percent Auto 10.5 2-11 - % Eosinophils Percent Auto 7.4 H 0-4 - % Basophils Percent Auto 0.7 0-2 - % NRBC Pct Auto 0.0 0.0-0.2 - /100WBC Neutrophils Absolute Auto 2.7 2.0-8.3 - x10* 3/uL Imm Gran Abs Auto 0.01 0.00-0.03 - X10*3/uL Lymphocytes Absolute Auto 1.8 1.2-4.9 - X10* 3/uL Monocytes Absolute Auto 0.6 0.1-1.2 - X10*3/ uL Eosinophils Absolute Auto 0.4 0.0-0.4 - X10* 3/uL Basophils Absolute Auto 0.0 0.0-0.2 - X10*3/ uL NRBC Abs Auto 0.000 0.0-0.012 - X10*3/uL L ab:Comprehensive [place]. Panel Fast (Order Date - 05/22/2024) (Collection Date & Time - 05/22/2024 07:00 AM) Value Reference Range Sodium 140 135-145 - mmol/L Bilirubin Total 0.6 0.0-1.0 - mg/dL Aspartate Amino Transferase 31 5-37 - U/L Alanine Aminotransferase 36 0-40 - U/L Total Protein 7.1 6.5-8.0 - g/dL Albumin Level 4.4 3.5-5.0 - g/dL Alkaline Phosphatase 44 39-117 - U/L Potassium 3.9 3.3-5.1 - mmol/L Chloride 105 96-108 - mmol/L Carbon Dioxide 26 22-29 - mmol/L Anion Gap 13 12-20 - Blood Urea Nitrogen 31 H 9-16 - mg/dL Creatinine 0.95 0.5-1.4 - mg/dL Estimated Glomerular Filt Rate > 60 - Glucose Fasting 86 60-99 - mg/dL Calcium 9.3 8.4-10.2 - mg/dL L ab:Lipid Panel (Order Date - 05/22/2024) (Collection Date & Time - 05/22/2024 07:00 AM) Value Reference Range Triglycerides 111 <150 - mg/dL Cholesterol 203 H <200 - mg/dL LDL Cholesterol Calculated 109 H <100 - mg/dL HDL Cholesterol 72 >40 - mg/dL L ab:PSA,Total (Free>4and<10) (Order Date - 05/22/2024) (Collection Date & Time - 05/22/2024 07:00 AM) Value Reference Range PSA,Total (Free>4and<10) 0.56 0.00-4.00 - ng/ mL L ab:Hemoglobin A1c (Order Date - 05/22/2024) (Collection Date & Time - 05/22/2024 07:00 AM) Value Reference Range Hemoglobin A1c % 5.2 <6.0 - % Estimated Average Glucose 103 - mg/dL L ab:Microalbumin, Random (Order Date - 05/22/2024) (Collection Date & Time - 05/22/2024 07:00 AM) Value Reference Range Creatinine Urine 44.27 - mg/dL Microalbumin Urine < 5.0 - mg/L Microalbum Creatinine Ratio Ur TNP <30 - ug/ mg cr * Examination: G eneral Examination: GENERAL APPEARANCE: w ell developed, well nourished, in no acute distress. HEAD: n ormocephalic, atraumatic. EYES: p upils equal, round, reactive to light and accommodation, sclera non-icteric. EARS: n ormal. ORAL CAVITY: m ucosa moist. THROAT: c lear. NECK/THYROID: n leelee supple, full range of motion, no cervical lymphadenopathy, no bruits. SKIN: w arm and dry, no suspicious lesions. HEART: r egular rate and rhythm, S1, S2 normal, no murmurs.? LUNGS: c lear to auscultation bilaterally. ABDOMEN: s oft, nontender, nondistended, bowel sounds present, normal, no organomegaly , no masses palpable. RECTAL EXAM: n ormal tone, no external hemorrhoids, no masses palpable, prostate normal,no stool . sent with cards. MALE GENITOURINARY: u ncircumcised, testes descended bilaterally, prostate normal. EXTREMITIES: n o clubbing, cyanosis, or edema. NEUROLOGIC: n onfocal, motor strength normal upper and lower extremities, sensory exam intact. Assessment: * Assessment: 1. A nnual physical exam - Z00.00 (Primary) 2 . P rediabetes - R73.09 ? 3 . A jimmy reflux - K21.9 4 . C olon cancer screening - Z12.11? 5. D epression screening - Z13.31 Plan: * Treatment: 2. P rediabetes Notes: doing great, no need for medication at this time, will continue to monitor 3. A jimmy reflux Continue Esomeprazole Magnesium Capsule Delayed Release, 40 MG, 1 capsule, Orally, Once a day. Notes: stable, will continue current regiment 4. C olon cancer screening L AB: Occult Blood, Stool, Guaiac (Collection Date & Time - 05/29/2024) N egative Value Reference Range O ccult Blood, Stool, Guaiac Neg Notes: guaiac negative??5.?Depression screening? Notes: negative screen?? * Procedure Codes: 8 2270 TEST FOR BLOOD, FECES * Follow Up: 1 Year * * Sign off status: Completed true * Provider: Dami Rushing MD Date: 0 05/29/2024 Generated for Cierra marshall/Mika/Rod on: 1 05/09/2024 01:53 PM EST History and Physical Notes * HPI (History of Present Illness) Category Sub-Category Detail Notes Category Not es Symptom(s) patientis a 69 yo male here for annual visit with review of reent labs an follow up of chronic issues. Depression Screening PHQ-9 Little inte rest or [...] way: Not at all Total Score: 0 Interpretation and Intervention Depression Lexus beavers Findings: Negative Follow-Up for Depression: : review of PH Q-9 found negative result, no follow-up needed SDOH Questions SDOH Questions In the past [...] had two or more falls in the st year?: No Communication Needs Communication Needs Does the patient have a hearing impairment: No Does the patient have a vision impairmen t?: Yes If yes, what is the vision impairment?: Glasses Does the patient have a cognition impair ment?: No Examination Category Sub-Category Detail Notes Category Not es General Examination GENERAL APPEARANCE: well dev eloped, well nourished, in no acute distress HEAD: normocephalic, atrau matic EYES: pupils equal, round, reactive to light and accommodation, sclera non-icteric EARS: normal THROAT: clear NECK/THYROID: neck supple, [...] clubbing, cyanosi s, or edema MALE GENITOURINARY: uncircumcised, teste s descended bilaterally, prostate normal RECTAL EXAM: normal tone, no exte rnal hemorrhoids, no masses palpable, prostate normal,no stool . sent with cards ORAL CAVITY: mucosa moist
--- OUTSIDE RECORDS SUMMARY | 2024-06-01 08:13 | XMS_ITS ---
Author Organization Jay Rushing MD Address [address] [place] [phone] Care Team Providers Care Director Microbiology Name Role Phone Jay Rushing Primary Care Provider [phone] Results Component Value Reference Range Notes Occult Blood, Stool, Guaiac Reviewed date:07/30/2024 01:57:24 PM Interpretation:Negative Performing Lab: Notes/Report: Negative Occult Blood, Stool, Guaiac Neg x 2 REASON FOR VISIT stool cards Encounters Encounter Location Date Provider Diagnosis Jay Rushing MD [address] [place] [address] [place] [phone] 06/01/2024 Jay Rushing Colon cancer screening Z12.11 Assessments Encounter Date Diagnosis (ICD Code) Assessment Notes Treatment Notes Treatment Clinical Notes Section Notes 06/01/2024 Colon cancer screening (ICD-10 - Z12.11) Plan Of Treatment Next Appt Details Provider Name:Jay romero, 05/28/2025 07:00:00 AM, [address] [place] [address], [address], [phone], Provider Name:Jay romero, 06/04/2025 08:30:00 AM, [address] [place] [address], [address], [phone], Progress Notes * David FORBES FDOB:1955 (69 yo M)Acc No.[id number]:06/01/2024 Patient: Hilario GIANFRANCO David Javier :1955 A ge:69 Y S ex:Male Address:[address] [place] [address], [place] [address] Subjective: * Chief Complaints: * S tool cards * Medical History: * Surgical History: * Hospitalization/Major Diagno stic Procedure: * Medications: Objective: * Vitals: * Physical Examination: Assessment: * Assessment: 1. C [facility] cancer screening - Z12.11 (Primary) Plan: * Treatment: Value Reference Range O ccult Blood, Stool, Guaiac Neg x 2 * Procedure Codes: 8 2270 TEST FOR BLOOD, FECES * true * Date: Generated for Cierra marshall/Mika/eTdanasmitting on: 05/09/2024 01:53 PM EST
--- OUTSIDE RECORDS SUMMARY | 2025-03-08 13:53 | XMS_ITS | Patient Health Record ---
Author Organization [facility] Address [address] [place] [address] Care Team Providers Care Tape Transferrer Name Role Phone Jay Rushing MD Primary Care Provider Cyndee Garcia Unavailable [phone] Allergies Allergen (clinical drug ingredient) Drug/Non Drug [...] W/U Status Risk Notes Problem Plantar wart (67076519) Plantar wart (B07.0) Active confirmed Plan Of Treatment No Information Insurance Providers Payer Name Payer Address Payer Phone Subscriber Number Group Number Insured Name Patient Relationship to Insured Coverage Start Date Coverage End Date Aetna Choice POS [address] [address] [place] [phone] [id number] David Griffith Self - patient is the insured Medical (General) History Medical History History ICD Code Hiatal hernia Measles Mumps Chicken pox Surgical History Surgery Date(Month/Year) hernia 1996 vasectomy 2007 nasal surgery 07/2017
--- OUTSIDE RECORDS SUMMARY | 2025-03-08 13:53 | XMS_ITS | Patient Health Record ---
Author Organization [facility] Address [address] [place] [address] Care Team Providers Care Testing And Regulating Technician Name Role Phone Jay Rushing MD Primary Care Provider Henrique Hidalgo Unavailable [phone] Allergies Allergen (clinical drug ingredient) Drug/Non Drug Allergy documented on EMR Reaction Allergy Type Onset Date Status Vaccine product containing Influenza virus antigen (medicinal product) flu injections (uncoded) Unknown Allergy Active Reason For Referral No Information Medications Medication SIG (Take, Route, Frequency, Duration) Notes Start Date End Date Status Multivitamin Active Social History Social History Additional Details Category Social Info Options Details Miscellaneous: Marital status: Occupation: [employer]/ retired Section Notes: Nonsmoker; no sig alcohol Nonsmoker; no sig alcohol Problems Problem Type SNOMED Code ICD Code Onset Dates Problem Status W/U Status Risk Notes Problem Screening for malignant neoplasm of colon (167366711) Encounter for screening for malignant neoplasm of colon (Z12.11) Active confirmed Problem Screening for malignant neoplasm of rectum (180020189) Encounter for screening for malignant neoplasm of rectum (Z12.12) Active confirmed Problem Preprocedural examination (027101789344045) Preprocedural examination (Z01.818) Active confirmed Problem Family History of Cancer of Colon (Situation) (117901684) Family history of colon cancer (Z80.0) Active confirmed Problem Diverticulosis of sigmoid colon (099661460) Diverticulosis of sigmoid colon (K57.30) Active confirmed Problem Family history of malignant neoplasm of gastrointestinal tract (074176306) Family history of colon cancer in father (Z80.0) Active confirmed Plan Of Treatment Future Test Test Name Order Date COLONOSCOPY 07/26/2015 COLONOSCOPY 08/23/2020 Insurance Providers Payer Name Payer Address Payer Phone Subscriber Number Group Number Insured Name Patient Relationship to Insured Coverage Start Date Coverage End Date Aetna (No Referra l) [address] [address] [place] [address] [id number] OCHOA FORBES Self - patient is the insured Medical (General) History Medical History History ICD Code Colonoscopy in 2004 and on ---diverticulosis and inrternal hemorrhoids Denies [place],DM,CVA,Lung disease,renal dise ase Seasonal allergies Negative colonoscopy in 10/2015 Surgical History Surgery Date(Month/Year) Right inguinal hernia surgery Vasectomy Left hernia repair Nasal polyp/deviated septum
--- OUTSIDE RECORDS SUMMARY | 2025-03-08 13:53 | XMS_ITS | Patient Health Record ---
Author Organization aJy Rushing MD Address [address] [place], [place] [phone] Care Team Providers Care Master Pilot Name Role Phone Jay Rushing Primary Care Provider Allergies Allergen (clinical drug ingredient) Drug/Non Drug Allergy documented on EMR Reaction Allergy Type Onset Date Status Vaccine product containing Influenza virus antigen (medicinal product) Flu Vac (uncoded) anaphylaxis Allergy Act manjula Results Component Value Reference Range Notes Complete Blood Count Auto Di ff Reviewed date:05/22/2024 12:33:12 PM Interpretation: Performing Lab:[facility], [address] [place] [phone] Notes/Report: White Blood Count 5.5 4.8-10.8 X10*3/uL [...] NRBC Abs Auto 0.000 0.0-0.012 X10*3/uL Comprehensive [place]. Panel Fa Reviewed date:05/22/2024 12:08:10 PM Interpretation: Performing Lab:[facility], [address] [place] [phone] Notes/Report: Sodium 140 135-145 mmol/L Potassium 3.9 [...] Panel Reviewed date:05/22/2024 12:09:13 PM Interpretation: Performing Lab:[facility], [address] [place] [phone] Notes/Report: Triglycerides 111 <150 mg/dL Desirable Triglyceride: [...] (Free>4and<10) Reviewed date:05/22/2024 12:08:41 PM Interpretation: Performing Lab:[address] [phone] Notes/Report: PSA,Total (Free>4and<10) 0.56 0.00-4.00 ng/mL A [...] Random Reviewed date:05/22/2024 12:46:04 PM Interpretation: Performing Lab:[address] [phone] Notes/Report: Creatinine Urine 44.27 Microalbumin Urine < 5.0 Microalbum/Creatinine Ratio Ur TNP <30 ug/mg cr Unable to calculate albumin/creatinine ratio due to low microalbumin or creatinine result. Hemoglobin A1c Reviewed date:05/22/2024 12:08:19 PM Interpretation: Performing Lab:[address] [address] Notes/Report: Hemoglobin A1c % 5.2 <6.0 % [...] average glucose, using the formula of the A8R-Onmfdzw Average Glucose study (ADAG), Diabetes Care, Vol.31,#8, Oct. 2007 UA ClnCatch+Micro w/rflx Cul t Reviewed date:05/22/2024 12:34:09 PM Interpretation: Performing Lab:[facility], [address] [place] [phone] Notes/Report: Urine, Clean Catch Color Urine Yellow Appearance Urine Clear PH 6.5 5.0-9.0 Glucose Urine UA Negative Negative mg/dL Urine Blood Negative Negative Specific [place] - Urine 1.010 1.005-1.025 Urine Protein Negative [...] Localized osteoarthrosis uncertain if primary OR secondary (36901080) Localized osteoarthrosis not specified whether primary or secondary, hand (715.34) Active confirmed Problem Acid reflux (747867825) Acid reflux (K21.9) Active confirmed Problem 7045878 Prediabetes (R73.09) Active confirmed Problem 092969548 Schatzki's ring (K22.2) Active confirmed Problem 863770617 Family history o f colon cancer (Z80.0) Active confirmed Problem 3548682174288 Bilateral nonpulsatile tinnitus (H93.13) Active confirmed Vital Signs Blood pressure diastolic 70 mm Hg 05/29/2024 Height 69 in 05/29/2024 Blood pressure systolic 122 mm Hg 05/29/2024 Weight 162 lbs 05/29/2024 BMI 23.92 kg/m2 05/29/2024 Encounters Encounter Location Date Provider Diagnosis Jay Rushing MD [address] [place] [address] [address] [place], [place] [phone] 05/22/2024 Jay Rushing Blood tests for routine general physical examination Z00.00 and Prediabetes R73.09 Jay Rushing MD [address] [place] [address] Drive [address] [place] [id number] 05/29/2024 Jay Rushing Prediabetes R73.09 ; Annual physical exam Z00.00 ; Acid reflux K21.9 ; Colon cancer screening Z12.11 and Depression screening Z13.31 Jay Rushing MD [address] [place] [address] Drive [address] [place] [id number] 06/01/2024 Jay Rushing Colon cancer screening Z12.11 [...] Details Provider Name:Jay romero, 05/28/2025 07:00:00 AM, [address] [place] [address], [place] [address], [place], [place], [phone], Provider Name:Jay romero, 06/04/2025 08:30:00 AM, [address] [place] [address], [place] [address], [place], [place], [phone], Insurance Providers Payer Name Payer Address Payer Phone Subscriber Number Group Number Insured Name Patient Relationship to Insured Coverage Start Date Coverage End Date AETNA MEDICARE ADVANTAGE [address] [place]LO CALDERA [id number] David Griffith Self - patient is the insured Medical (General) History Medical History History ICD Code colonoscopy - 12/18/10; colon oscopy done 11/03/15 w/Dr. Henson - repeat 5 yrs due to family hx of colon cancer colonoscopy 10/05, repeat 5 yrs
--- OUTSIDE RECORDS SUMMARY | 2025-03-08 13:53 | XMS_ITS | Clinical Summary ---
Author Organization [facility] Facility Address [address] [place] [address] Care Team Providers Care Pecan Sheller Name Role Phone Jay Rushing MD Primary [...] Insurance Aet Commercial Aetna Commercial Care Teams Pecan Sheller Relationship Specialty Start Date End Date Jay Rushing MD [address] [place], [place] PCP - General Internal Medicine 08/19/20
== END 2025-03-08 11:01 | disposition home or self-care (01) ==
LOC: HO.HMGAL 11:01
PROVIDERS: PCP Internal Medicine; Visit Provider Registered Nurse Emergency
DX: J30.89 Other allergic rhinitis (principal)
CPT/HCPCS: 95117; 95165